=== PATIENT | female | born 1940 | race Caucasian/White ===

== ENCOUNTER 2017-12-18 13:31 | Day surgery (SDC) | payer MEDICARE, BC, SELFPAY ==
[2017-12-18 14:25] VITALS: BP 191/82; PULSE 57; RESP 16; TEMP 36; O2SAT 99
[2017-12-18] MEDS: SODIUM CHLORIDE 0.9% 1,000 ML 42 ML IV (14:41)
--- NOTE | 2017-12-18 14:51 | SUR.OPER ---
to endo from opd via cart respirations unlabored iv patnet positioned per self for procedure
--- NOTE | 2017-12-18 14:54 | PM.HP.1 ---
History of Present Illness Date Patient Seen: 12/18/17 Time Patient Seen: 14:54 Chief complaint: colonoscopy w/biopsy [id number] Narrative: Screening colonoscopy without Patient History Medical History GE reflux (Acute) Hypercholesterolemia (Acute) Hypertension (Acute) Hypothyroidism (Acute) Meds Home Medications Medication Instructions Recorded Confirmed Type THYROID (BIO-THROID) mg PO QDAY #0 07/03/12 History alprazolam [Xanax] mg PO HS #0 07/03/12 History hydrochlorothiazide 25 mg PO QDAY #0 07/03/12 History isosorbide mononitrate 40 mg PO QDAY #0 07/03/12 History metoprolol tartrate [Lopressor] mg PO QDAY #0 07/03/12 History nortriptyline [Pamelor] mg PO HS #0 07/03/12 History sertraline [Zoloft] 25 mg PO QDAY #0 07/03/12 History simvastatin [Zocor] mg PO HS #0 07/03/12 History trazodone mg PO HS #0 07/03/12 History Allergies Allergy/AdvReac Type Severity Reaction Status Date / Time No Known Drug Allergies Allergy Verified 12/18/17 14:22 Exam Vital Signs (past 8 hours): - 12/18/17 14:25 Temperature 96.8 F L Pulse Rate 57 L Respiratory Rate 16 Blood Pressure 191/82 H Pulse Oximetry 99 Oxygen Delivery Method Room Air Narrative Exam Narrative: Oropharynx free of lesions Chest clear to auscultation percussion Cardiac exam reveals no S3 or murmur Assessment & Plan Plan: Assessment/Plan Narrative: Need for 10 year screening colonoscopy
--- NOTE | 2017-12-18 15:15 | PM.OP.ENDO ---
Operative Date/Time/Diagnoses Date of procedure: 12/18/17 Time of procedure: 15:15 Pre-op diagnosis: See indication and findings Post-op diagnosis: same Procedure & Clinicians Study performed: Colonoscopy Same procedure as scheduled: Yes Indications: Ten year screening Surgeon: Aguilar Antonio Procedure Notes Procedure in detail: After informed consent was obtained the patient placed left lateral decubitus position. The video colonoscope was introduced the rectum slowly advanced to the cecum. Preparation was good. Cecum was identified as IC valve and appendiceal orifice. On slow withdrawal it goes was carefully examined. Scope was removed patient tolerated procedure well Blood loss none Complications none Sedation Fentanyl 50 mcg Versed 5 mg IV titration Total sedation time 23 min Findings 1. Significant sigmoid diverticulosis 2. Otherwise negative colonoscopy to cecum This will be Ms. guy men's last colonoscopy. Sedation minutes: 24
--- NOTE | 2017-12-18 15:16 | SUR.OPER ---
tolerated procedure well
[2017-12-18 15:17] VITALS: BP 177/80; PULSE 60; RESP 20; TEMP 36; O2SAT 99
[2017-12-18] MEDS: fentaNYL 250 MCG/5 ML INJ 50 MCG IV (15:18)
[2017-12-18] MEDS: MIDAZOLAM 5 MG/5 ML VIAL IV (15:18)
--- NOTE | 2017-12-18 15:18 | P.OP.ENDO_ITS ---
Operative Date/Time/Diagnoses Date of procedure: 12/18/17 Time of procedure: 15:15 Pre-op diagnosis: See indication and findings Post-op diagnosis: same Procedure & Clinicians Study performed: Colonoscopy Same procedure as scheduled: Yes Indications: Ten year screening Surgeon: Aguilar Antonio Procedure Notes Procedure in detail: After informed consent was obtained the patient placed left lateral decubitus position. The video colonoscope was introduced the rectum slowly advanced to the cecum. Preparation was good. Cecum was identified as IC valve and appendiceal orifice. On slow withdrawal it goes was carefully examined. Scope was removed patient tolerated procedure well Blood loss none Complications none Sedation Fentanyl 50 mcg Versed 5 mg IV titration Total sedation time 23 min Findings 1. Significant sigmoid diverticulosis 2. Otherwise negative colonoscopy to cecum This will be Ms. gyu men's last colonoscopy. Sedation minutes: 24
[2017-12-18 15:23] VITALS: BP 168/78; PULSE 59; RESP 13; O2SAT 100
[2017-12-18 15:28] VITALS: BP 174/82; PULSE 60; RESP 20; TEMP 36.1; O2SAT 98
[2017-12-18 16:10] VITALS: BP 196/75; PULSE 57; RESP 16; TEMP 36.3; O2SAT 100
== END 2017-12-18 16:10 | disposition home or self-care (01) ==
PROVIDERS: PCP Family Medicine; Visit Provider Internal Medicine Gastroenterology
PROC: 0DJD8ZZ Inspection of Lower Intestinal Tract, Via Natural or Artificial Opening Endoscopic (ICD-10-PCS; CPT 45378; principal; 2017-12-18 14:30)
DX: Z12.11 Encounter for screening for malignant neoplasm of colon (principal); K57.30 Diverticulosis of large intestine without perforation or abscess without bleeding; K21.9 Gastro-esophageal reflux disease without esophagitis; E78.00 Pure hypercholesterolemia, unspecified; I10 Essential (primary) hypertension; E03.9 Hypothyroidism, unspecified
CPT/HCPCS: G0105; J2250; J3010

== ENCOUNTER 2019-09-14 19:29 | Inpatient (IN) | payer MEDICARE, OTHER, SELFPAY ==
[2019-09-14 19:38] VITALS: BP 131/88; PULSE 114; RESP 15; TEMP 36.8; O2SAT 96; BMI 16.4
--- NOTE | 2019-09-14 20:12 | ED_ITS ---
HPI - Extremity Injury (Lower) General Chief Complaint: Extremity Injury, Lower Stated Complaint: L hip fracture Time Seen by Provider: 09/14/19 20:12 Source: EMS Mode of arrival: EMS History of Present Illness HPI Narrative: Patient presents after a ground level fall with left hip pain. She was seen initially at [facility] emergency department and diagnosed with a femoral neck fracture. As they do not currently have orthopedic coverage she is transfer to [facility] for admission and orthopedic intervention. Dr. Ashwini ojeda was aware of transfer prior to accepting. Medical history includes hypertension, hyperlipidemia, coronary artery disease, osteoporosis, reflux and patient will benefit from admission to the [facility] for medical management of medical issues prior to surgical intervention. [facility] sent a disc with imaging studies. Or currently unable to load studies from that disc into a radiology programs. Will see if they can be electronically pushed from [facility] not will need to re-image. Related Data Home Medications Medication Instructions Recorded Confirmed THYROID (BIO-THROID) mg PO QDAY #0 07/03/12 metoprolol tartrate [Lopressor] 50 mg PO BID #0 07/03/12 12/18/17 trazodone mg PO HS #0 07/03/12 chlorthalidone 0.5 mg/kg PO DAILY 12/18/17 12/18/17 clonazepam 0.25 mg PO BID 12/18/17 12/18/17 ibandronate 150 mg PO QMONTH 12/18/17 12/18/17 lisinopril 20 mg PO DAILY 12/18/17 12/18/17 omeprazole 20 mg PO DAILY 12/18/17 12/18/17 pravastatin 20 mg PO DAILY 12/18/17 12/18/17 trazodone 100 mg PO DAILY 12/18/17 12/18/17 Allergies Allergy/AdvReac Type Severity Reaction Status Date / Time No Known Drug Allergies Allergy Verified 09/14/19 19:38 Review of Systems Review of Systems Narrative: Denies ? fever ? cough ? cold ? chills ? chest pain ? dyspnea ? orthopnea ? wheezing ? abdominal pain ? change to bowel or bladder habits ? nausea vomiting ? skin changes ? rashes Patient History Medical History (Updated 09/14/19 @ 20:38 by Jessica Garcia MD) GE reflux (Acute) Hypercholesterolemia (Acute) Hypertension (Acute) Hypothyroidism (Acute) Surgical History (Updated 09/14/19 @ 20:16 by Jessica Garcia MD) History of appendectomy (Acute) History of hysterectomy (Acute) Social History (Updated 09/14/19 @ 20:22 by Jessica Garcia MD) details: 2 weeks ago, of a cardiac event at home household members: family and children other: She and her were traveling through [facility] 5 weeks ago Smoking Status: Never smoker alcohol intake: current Exam Narrative Exam Narrative: General: Healthy appearing, in no acute distress. Able to give a complete and mostly coherent history after multiple narcotic doses. HEENT: Dry mucous membranes, normal sclera with reactive pupils, Neck: No JVD, supple Respiratory: Lungs are clear to auscultation, no wheezing no rales no rhonchi. Full and symmetrical air movement Cardiac: Regular rate and rhythm no murmurs no bruits Abdomen: Soft nontender good bowel tones, no flank pain Skin: Warm and dry, no rashes Neurologic: Grossly neurologically intact with no obvious asymmetries or abnormalities Extremities: Left hip is tender position of comfort is slightly externally rotated with the knee at 45?, neurovascularly intact Psych: Cooperative, appropriate insight and affect Initial Vital Signs Initial Vital Signs: Vital Signs Temperature 98.2 F 09/14/19 19:38 Pulse Rate 114 H 09/14/19 19:38 Respiratory Rate 15 09/14/19 19:38 Blood Pressure 131/88 09/14/19 19:38 Pulse Oximetry 96 09/14/19 19:38 Course Orders Ordered: ED Orders 09/14/19 20:35 XR chest 1V Stat EKG-12 Lead Stat Hydromorphone HCl (Dilaudid) 0.25 mg IV Q2H PRN PRN Reason: Pain, Severe (7-10) Last Admin: 09/14/19 21:16 Dose: 0.25 mg Documented by: PEPPER Hydromorphone HCl (Dilaudid) 0.5 mg IV Q1HR PRN PRN Reason: pain Potassium Chloride 40 meq/ (Sodium Chloride) 520 mls @ 130 mls/hr IV NOW ONE Stop: 09/15/19 00:35 Last Admin: 09/14/19 20:45 Dose: 130 mls/hr Documented by: PEPPER Cosigned by: [email or web address] Sodium Chloride (Normal Saline 0.9%) 1,000 mls @ 150 mls/hr IV CONT SERGEY Last Admin: 09/14/19 21:17 Dose: 150 mls/hr Documented by: PEPPER Discontinued Medications Acetaminophen (Tylenol) 325 mg PO NOW ONE Stop: 09/14/19 20:36 Last Admin: 09/14/19 20:44 Dose: 325 mg Documented by: PEPPER Hydromorphone HCl (Dilaudid) 0.5 mg IV Q2H ONE Stop: 09/14/19 21:55 Last Admin: 09/14/19 22:09 Dose: 0.5 mg Documented by: ROHIT Sodium Chloride (Normal Saline 0.9%) 1,000 mls @ 1,000 mls/hr IV BOLUS ONE Stop: 09/14/19 22:07 Last Admin: 09/14/19 21:16 Dose: 1,000 mls/hr Documented by: PEPPER Oxycodone/Acetaminophen (Percocet 5/325) 1 tab PO NOW ONE Stop: 09/14/19 20:36 Last Admin: 09/14/19 20:44 Dose: 1 tab Documented by: PEPPER Potassium Chloride (Klor-Con M20) 40 meq PO NOW ONE Stop: 09/14/19 20:36 Last Admin: 09/14/19 20:44 Dose: 40 meq Documented by: PEPPER Vital Signs Vital signs: Vital Signs - 8 hr 09/14/19 19:38 Temperature 98.2 F Pulse Rate 114 H Respiratory Rate 15 Blood Pressure 131/88 Pulse Oximetry 96 MDM - Extremity Injury (Lower) Medical Records Attestation: I reviewed the patient's medical records. Lab Data Attestation: I reviewed the patient's lab results. Lab results narrative: Initial labs from [facility] indicate normal CBC sodium low at 123 protect with potassium low at 2.7 and chloride low at 82 [facility] H&H is 13/37.8 repeat 4 hours later is 12.1/35.7 Result diagrams: 09/14/19 21:25 Imaging Data Left hip imaging done, [facility]: Radiologist's Impression: Preliminary report available, images not yet available: Acute moderately angulated, mildly foreshortened, comminuted as well as displaced intratrochanteric left femoral fracture 2100 images were able to be imported into our [facility] PACS system Chest x-ray: Radiologist's Impression: IMPRESSION: Mild interstitial pulmonary edema. Question focal right upper lobe pneumonia. Dictated by: Mikey Gil M.D. on 09/14/2019 at 21:10 ECG Data Attestation: I personally reviewed and interpreted this ECG as follows: Interpretation: Sinus tachycardia at a rate of 113 Q-waves anteriorly suggesting old anterior infarction No acute ischemic changes Normal axis, normal intervals MDM Narrative Medical decision making narrative: Left trochanteric hip fracture. Will need surgical intervention; add Covid19 testing, EKG and chest x-ray preop. Sodium is low at 123 as is potassium 2.4. Will continue with maintenance fluid and potassium replacement. Dr. Mayes accepts admission to the hospitalist service Dr. Frias agrees to consultation. Surgery at the very earliest would be tomorrow evening and more likely on Saturday. She will coordinate with Dr. Mayes 2100 increasing pain. Feel Percocet for extended relief from 0.25 of IV Dilaudid for immediate relief. Repeat blood pressure is 94/53 and noted blood pressure prior to treatment of any pain was 193/97 at [facility]. She is also moderately tachycardic. Will repeat an H&H just make sure she is not bleeding and make sure that she has a type and screen preoperatively as well 2200 H&H is reassuring. Low blood pressure documented was not for this patient Discharge Plan Departure Patient Disposition: Admitted As Inpatient Clinical Impression: Acute hypokalemia, Acute hyponatremia Femoral neck fracture Qualifiers: Encounter type: initial encounter Fracture type: closed Laterality: left Qualified Code(s): S72.002A - Fracture of unspecified part of neck of left femur, initial encounter for closed fracture Discharge Date/Time: 09/14/19 22:10 Referrals: Bronson Cheatham MD [Primary Care Provider] - Admit Date/Time: 09/14/19 20:52 Admit Provider: Gosia Mayes
--- NOTE | 2019-09-14 20:35 | DI.RAD.S_ITS ---
PROCEDURE: XR CHEST 1V INDICATIONS: pre-op TECHNIQUE: One view of the chest was acquired. COMPARISON: [facility], , CHEST 2 VIEW, 08/08/2010, 10:07. FINDINGS: Surgical changes and devices: None. Lungs and pleura: Mild interstitial pulmonary edema. Question focal airspace consolidation in the right upper lobe. No pleural effusions or pneumothorax. Mediastinum: Mediastinal contours appear normal. Heart size is normal. Bones and chest wall: No suspicious bony lesions. Overlying soft tissues appear unremarkable. IMPRESSION: Mild interstitial pulmonary edema. Question focal right upper lobe pneumonia. Dictated by: Mikey Gil M.D. on 09/14/2019 at 21:10 Approved by: Mikey Gil M.D. on 09/14/2019 at 21:11
[2019-09-14] MEDS: ACETAMINOPHEN 325 MG TABLET PO (20:44)
[2019-09-14] MEDS: POTASSIUM CHLORIDE 20 MEQ TAB 40 MEQ PO (20:44)
[2019-09-14] MEDS: OXYCODONE/ACETAMINOPHEN 5/325 TABLET 1 TAB PO (20:44)
[2019-09-14] MEDS: POTASSIUM CHLORIDE 40 MEQ in SODIUM CHLORIDE 0.9% 500 ML 130 ML IV (20:45)
[2019-09-14] MEDS: HYDROMORPHONE 0.5 MG INJ 0.25 MG IV (21:16)
[2019-09-14] MEDS: SODIUM CHLORIDE 0.9% 1,000 ML 1000 ML IV (21:16)
[2019-09-14] MEDS: SODIUM CHLORIDE 0.9% 1,000 ML 150 ML IV (21:17)
--- NOTE | 2019-09-14 21:33 | PC.NURSE ---
pt c/o left hip pain. sent from [facility] for fx and surgical intervention. pt arrives pain uncontrolled. pt states she tripped on tripod at home causing her to fall. denies loc.
[2019-09-14 21:44] LABS: Hematocrit 35.7 % (36-46); Hemoglobin 12.1 g/dL (12.0-16.0)
--- NOTE | 2019-09-14 21:54 | PC.NURSE ---
Verbal order recieved for 0.5mg IV dilaudid for severe pain.
[2019-09-14 22:02] VITALS: BP 196/83; PULSE 60; RESP 24; O2SAT 92
[2019-09-14] MEDS: HYDROMORPHONE 0.5 MG INJ IV (22:09)
[2019-09-14 22:39] VITALS: BMI 17.6
[2019-09-14 22:49] VITALS: BP 164/83; PULSE 87; RESP 16; TEMP 36.9; O2SAT 100
--- NOTE | 2019-09-14 22:59 | P.HP_ITS ---
History of Present Illness History of Present Illness Date Patient Seen: 09/14/19 Chief complaint: L hip fracture Narrative: The patient is an 79-year-old female with a history of hypertension, hyperlipidemia, GERD, coronary artery disease, who reports she was standing at home looking through her tripod telescope when she stepped backwards to ovoid her dog and fell over 1 of the legs of the tripod. The patient landed on her left hip. She had immediate pain. She denies any lightheadedness dizziness or chest pain prior to her fall. Patient was taken to [facility]. She had an x-ray which showed an acute moderate angulated mildly foreshortened comminuted displaced intertrochanteric left femur fracture. As [facility] had no orthopedic coverage this evening she was transferred to [facility] for admission and surgical treatment. Patient History Medical History (Updated 09/14/19 @ 23:01 by Gosia Mayes MD) CAD (coronary artery disease) (Acute) GE reflux (Acute) Hypercholesterolemia (Acute) Hypertension (Acute) Hypothyroidism (Acute) Surgical History History of appendectomy (Acute) History of hysterectomy (Acute) Family & Social History Family History (Updated 09/14/19 @ 23:02 by Gosia Mayes MD) Mother Natural with unknown cause Father Natural with unknown cause Social History: household members family,children Prior Living Arrangements House other She and her were traveling through [facility] 5 weeks ago Safety & Behavioral: Feels Safe in Current Yes Environment Been Physically Hurt or No Threatened By a Person Suicidal Ideation Description None Suicide Plan Description No Plan Tobacco & Substance use: Smoking Status Never smoker alcohol intake current alcohol intake frequency 0-2 drinks per day Substance Use Type does not use Meds Home Medications and Allergies Home Medications Medication Instructions Recorded Confirmed Type THYROID (BIO-THROID) mg PO QDAY #0 07/03/12 History metoprolol tartrate [Lopressor] 50 mg PO BID #0 07/03/12 12/18/17 History trazodone mg PO HS #0 07/03/12 History chlorthalidone 0.5 mg/kg PO DAILY 12/18/17 12/18/17 History clonazepam 0.25 mg PO BID 12/18/17 12/18/17 History ibandronate 150 mg PO QMONTH 12/18/17 12/18/17 History lisinopril 20 mg PO DAILY 12/18/17 12/18/17 History omeprazole 20 mg PO DAILY 12/18/17 12/18/17 History pravastatin 20 mg PO DAILY 12/18/17 12/18/17 History trazodone 100 mg PO DAILY 12/18/17 12/18/17 History Allergies Allergy/AdvReac Type Severity Reaction Status Date / Time No Known Drug Allergies Allergy Verified 09/14/19 19:38 Review of Systems Review of Systems ROS: Yes All systems reviewed with the patient and are negative except as otherwise documented Exam Vital Signs (past 8 hours): - 09/14/19 19:38 09/14/19 22:02 09/14/19 22:49 Temperature 98.2 F 98.5 F Pulse Rate 114 H 60 87 Respiratory Rate 15 24 16 Blood Pressure 131/88 164/83 H Blood Pressure [Left Arm] 196/83 H Pulse Oximetry 96 92 100 Oxygen Delivery Method Room Air Narrative Exam Narrative: Pleasant elderly female uncomfortable with pain HEENT: Normocephalic atraumatic, extraocular muscles are intact, oropharynx reveals dry mucous membranes, neck is supple without adenopathy, no JVD noted Lungs: Clear to auscultation, no rhonchi crackles or wheezes Cardiac exam: Regular rate and rhythm, normal S1-S2, 2/6 systolic ejection murmur Abdomen: Soft nontender nondistended, no hepatosplenomegaly, well-healed midline incision noted, no rebound tenderness, no board-like rigidity, no palpable mass Extremities: Left extremity shortened and internally rotated, right lower extremity no edema Neuro exam: Patient is extremely hard hearing, she has bilateral hearing aids in place her cranial nerves are intact, she is able to move her upper extremities, she is in exquisite pain with movement of the left lower extremity, she is able to move the right lower extremity Skin exam no obvious lesion Psychiatric exam: The patient is alert awake oriented and appropriate, she has no active delusions or hallucinations. Objective Labs Result Diagrams: 09/14/19 21:25 Labs: Laboratory Results - last 24 hr 09/14/19 09/14/19 21:25 21:25 Hgb 12.1 Hct 35.7 L Blood Type B Positive Antibody Screen Negative Assessment & Plan Assessment & Plan narrative: Impression 1. 79-year-old female with a history of osteoporosis status post ground level fall here for a left moderately angulated comminuted displaced intertrochanteric femur fracture -x-ray report from would be confirms a femur fracture -patient with known osteoporosis -patient in significant pain at this time -will continue IV Dilaudid -orthopedic surgery consultation obtained, the patient to proceed to the OR once COVID-19 test is negative 2. Hyponatremia -serum sodium 123 on admission -will continue IV hydration -will repeat labs in the morning -will hold chlorthalidone while hospitalized -chlorthalidone likely etiology of hyponatremia 3. Hypokalemia -serum potassium 2.7 -potassium replacement in the emergency department and will continue -will check magnesium and repeat labs in the morning -suspect chlorthalidone leading to hypokalemia as well 4. Hypertension -will continue lisinopril 5. Hyperlipidemia -continue statin 6. GERD -will continue PPI 7. History of osteoporosis -patient will continue outpatient bisphosphonate per her primary care physician -resume multi vitamins as an outpatient 8. History of coronary artery disease -will continue metoprolol -EKG reveals sinus tachycardia with occasional PVCs, anteroseptal MD age indeterminate 9. DVT prophylaxis -will initiate b.i.d. aspirin 10. Anxiety posttraumatic stress disorder -will continue clonazepam Patient indicates she is a full code will note that her record accordingly The patient was evaluated during the COVID-19 [facility], and that diagnosis was considered upon initial presentation. The evaluation, treatment, and testing was consistent with current guidelines for patients who presents with complaints or symptoms at may be related to COVID-19
--- NOTE | 2019-09-14 23:20 | PC.NURSE ---
2315 -Pt sats decreased to 84% on RA with sleep. Placed on 2l. Sats increased to 100%. 2230 - Pt to room from ER. Transfer to bed via sliderboard. C/o 9 of 10 pain. Anxious. Encouraged slow breathing. Some difficulty answering questions r/t pain and difficulty concentration. Oriented to room and routine. Educated to safety. Call light in reach. Bed alarm on. Dr. Mayes at bedside to see pt.
[2019-09-14 23:25] VITALS: BP 149/66; PULSE 77; RESP 18; TEMP 36.9; O2SAT 100
[2019-09-15] VITALS (25 sets, daily range): BP systolic 113–151; BP diastolic 46–78; PULSE 63–79; RESP 10–21; TEMP 36.7–37.5; O2SAT 87–100; BMI 17.6
--- NOTE | 2019-09-15 | DI.RAD.S_ITS ---
PROCEDURE: XR HIP W PEL IF DONE LT 2V INDICATIONS: POST OPERATIVE ORIF LEFT HIP TECHNIQUE: AP pelvis with lateral view(s) of the left hip(s). COMPARISON: [facility], RG, XR HIP 2V LEFT, 09/14/2019, 16:07. [facility], CR, XR HIP W PEL IF DONE LT 2V, 09/15/2019, 18:36. FINDINGS: Bones: Open reduction and internal fixation of intertrochanteric left femoral neck fracture. 2 screws urs the femoral neck. There is a intramedullary gracie. The alignment is anatomic. Multiple left rib fracture. There is an old right inferior pubic humeral fracture. No suspicious bony lesions. Soft tissues: The visualized bowel gas pattern is normal. No suspicious soft tissue calcifications. IMPRESSION: ORIF of left hip fracture. Dictated by: Aleks Santo M.D. on 09/15/2019 at 19:54 Approved by: Aleks Santo M.D. on 09/15/2019 at 20:00
--- NOTE | 2019-09-15 | DI.RAD.S_ITS ---
PROCEDURE: XR HIP W PEL IF DONE LT 2V INDICATIONS: ORIF LEFT HIP TECHNIQUE: 4 views of the hip were acquired. COMPARISON: [facility], , XR HIP 2V LEFT, 09/14/2019, 16:07. FINDINGS: 4 intraoperative fluoroscopy images demonstrate ORIF of left femoral neck fracture and placement of compression screws and intramuscular gracie. IMPRESSION: ORIF of left femoral neck fracture. Dictated by: Aleks Santo M.D. on 09/15/2019 at 19:50 Approved by: Aleks Santo M.D. on 09/15/2019 at 19:52
[2019-09-15] MEDS: TRAZODONE 50 MG TABLET PO (00:20)
[2019-09-15] MEDS: KCL 40 MEQ IN NS 1,000 ML 100 MEQ IV (00:20)
[2019-09-15] MEDS: METOPROLOL IR 50 MG TABLET PO ×2 (00:20→08:03)
[2019-09-15] MEDS: ASPIRIN EC 81 MG TABLET PO ×2 (00:21→08:03)
[2019-09-15] MEDS: HYDROMORPHONE 1 MG INJ IV ×2 (00:45→06:23)
[2019-09-15] MEDS: HYDROMORPHONE 0.5 MG INJ IV (04:08)
[2019-09-15 04:55] LABS: Add Manual Diff / Slide Review NO; Basophils Absolute Auto 100 /uL (0-100); Basophils Percent Auto 0.5 % (0-2); Eosinophils Absolute Auto 400 /uL (0-450); Eosinophils Percent Auto 4.4 % (2-4); Hematocrit 28.7 % (36-46); Hemoglobin 9.9 g/dL (12.0-16.0); Lymphocytes Absolute Auto 1200 /uL (1100-4500); Lymphocytes Percent Auto 12.6 % (25-40); Mean Corpuscular HGB Conc 34.4 % (30-36); Mean Corpuscular Hemoglobin 32.3 PG (26-34); Mean Corpuscular Volume 93.8 fL (80-100); Monocytes Absolute Auto 700 /uL (0-900); Monocytes Percent Auto 6.9 % (3-14); Neutrophils Absolute Auto 7100 /uL (1500-7000); Neutrophils Percent Auto 75.6 % (50-75); Platelet Count 265 X10^3/uL (150-400); Red Blood Cell Count 3.07 X10^6/uL (4.0-5.2); Red Cell Distribution Width 12.1 % (11.6-14.8); White Blood Cell Count 9.4 X10^3/uL (4.5-11.0)
[2019-09-15 04:59] LABS: Magnesium 1.5 mg/dL (1.6-2.3)
[2019-09-15 05:12] LABS: BUN Creatinine Ratio 18.8 (6-22); Blood Urea Nitrogen 9 mg/dL (7-17); Calcium 7.7 mg/dL (8.4-10.2); Carbon Dioxide 28 mmol/L (22-32); Chloride 100 mmol/L (98-107); Estimated Glomerular Filt Rate > 60.0 mL/min (>60); Glucose 99 mg/dL (80-110); HEMOLYSIS < 15 (0-50); Sodium 129 mmol/L (137-145)
[2019-09-15 05:13] LABS: Potassium 5.1 mmol/L (3.4-5.1)
[2019-09-15] MEDS: PANTOPRAZOLE 20 MG TABLET PO (06:23)
--- NOTE | 2019-09-15 07:51 | P.CONS_ITS ---
History of Present Illness Consult details Date Patient Seen: 09/15/19 Time Patient Seen: 07:52 Chief complaint: L hip fracture Reason for consult: Hip fracture left Requesting provider: Jessica Garcia Narrative: 79-year-old female ground level fall left intertrochanteric hip fracture. [facility] coverage apparently so transferred patient [facility] for care. Patient reportedly was in [place] about 5 weeks ago. Unfortunately lost about 2 weeks ago. Thinks she has been having hip pain for at least about a month but was unable to ambulate presented on the stretcher to the hospital yesterday. No history of orthopedic surgeries. History osteoporosis. Denies any other injuries. Pain controlled when lies still exacerbated by movement. Pain medication helps. States has family members in [place]. Denies fevers chills nausea vomiting. Meds Home Medications and Allergies Home Medications Medication Instructions Recorded Confirmed Type THYROID (BIO-THROID) mg PO QDAY #0 07/03/12 History metoprolol tartrate [Lopressor] 50 mg PO BID #0 07/03/12 12/18/17 History trazodone mg PO HS #0 07/03/12 History chlorthalidone 0.5 mg/kg PO DAILY 12/18/17 12/18/17 History clonazepam 0.25 mg PO BID 12/18/17 12/18/17 History ibandronate 150 mg PO QMONTH 12/18/17 12/18/17 History lisinopril 20 mg PO DAILY 12/18/17 12/18/17 History omeprazole 20 mg PO DAILY 12/18/17 12/18/17 History pravastatin 20 mg PO DAILY 12/18/17 12/18/17 History trazodone 100 mg PO DAILY 12/18/17 12/18/17 History Allergies Allergy/AdvReac Type Severity Reaction Status Date / Time No Known Drug Allergies Allergy Verified 09/14/19 19:38 Review of Systems Review of Systems ROS: Yes All systems reviewed with the patient and are negative except as otherwise documented Exam Vital Signs (past 8 hours): - 09/15/19 04:25 Temperature 98.2 F Pulse Rate 72 Respiratory Rate 20 Blood Pressure 142/65 H Pulse Oximetry 100 Oxygen Delivery Method Nasal Cannula Oxygen Flow Rate 1 Narrative Exam Narrative: Alert oriented female in no acute distress. HEENT exam normocephalic atraumatic Respiratory exam lungs clear to auscultation bilaterally CV exam regular rate and rhythm Musculoskeletal exam moving bilateral upper extremities and right lower extremity without pain no tenderness or deformity. Left lower extremity shows deformity with shortening and external rotation consistent with hip fracture pathology. Stable to demonstrate ankle d orsiflexion plantar flexion wiggles toes. Calf is soft. Thigh is soft. Brisk capillary refill. Objective Labs Result Diagrams: 09/15/19 04:35 09/15/19 04:35 Labs: Laboratory Results - last 24 hr 09/14/19 09/14/19 09/14/19 21:25 21:25 22:30 WBC RBC Hgb 12.1 Hct 35.7 L MCV MCH MCHC RDW Plt Count Neut % (Auto) Lymph % (Auto) [place] % (Auto) Eos % (Auto) Baso % (Auto) Neut # (Auto) Lymph # (Auto) [place] # (Auto) Eos # (Auto) Baso # (Auto) Sodium Potassium Chloride Carbon Dioxide BUN Creatinine Estimated GFR BUN/Creatinine Ratio Glucose Calcium Magnesium Nasal Screen MRSA (PCR) Negative for mrsa Blood Type B Positive Antibody Screen Negative 09/15/19 09/15/19 09/15/19 04:35 04:35 04:35 WBC 9.4 RBC 3.07 L Hgb 9.9 L Hct 28.7 L MCV 93.8 MCH 32.3 MCHC 34.4 RDW 12.1 Plt Count 265 Neut % (Auto) 75.6 H Lymph % (Auto) 12.6 L [place] % (Auto) 6.9 Eos % (Auto) 4.4 H Baso % (Auto) 0.5 Neut # (Auto) 7100 H Lymph # (Auto) 1200 [place] # (Auto) 700 Eos # (Auto) 400 Baso # (Auto) 100 Sodium 129 L Potassium 5.1 Chloride 100 Carbon Dioxide 28 BUN 9 Creatinine 0.48 L Estimated GFR > 60.0 BUN/Creatinine Ratio 18.8 Glucose 99 Calcium 7.7 L Magnesium 1.5 L Nasal Screen MRSA (PCR) Blood Type Antibody Screen Assessment & Plan Assessment and plan (1) Hip fracture due to osteoporosis: Problem details: Left hip fracture osteoporosis. Surgical fixation for intertrochanteric fracture. Discussed calcium vitamin-D outpatient management with DEXA scan possible bisphosphonate or other treatment as indicated with primary care. Current visit: Yes Status: Acute (2) Intertrochanteric fracture of left hip: Problem details: Comminuted intertrochanteric hip fracture. Discussed to restore alignment and promote mobility decrease morbidity mortality surgical indication is indicated. Patient understands and agrees. Will plan for intramedullary nailing intertrochanteric femur fracture when the OR is available. Try to do this around 5- 5:30 p.m. tonight if medically optimized and covid-19 testing is back. Will need to be NPO 8 hours prior. If unable to do surgery tonight will do surgery Saturday. Discussed risks for possible blood transfusion after surgery will depend on intraoperative blood loss and perioperative course. The risks and benefits of the procedure have been discussed with the patient even opportunity to ask questions. The risks of surgery include but are not limited to infection, malunion, nonunion, persistence of pain, damage to nerves and blood vessels, posttraumatic arthritis, DVT, PE, cardiopulmonary complications and . The patient expressed a thorough understanding of the risks and benefits of surgery and has elected to proceed. Consent was signed today. Current visit: Yes Status: Acute
[2019-09-15] MEDS: DOCUSATE 100 MG CAPSULE PO (08:03)
[2019-09-15] MEDS: clonazePAM 0.5 MG TABLET PO (08:03)
[2019-09-15] MEDS: lisinopriL 20 MG TABLET PO (08:03)
[2019-09-15] MEDS: LEVOTHYROXINE 75 MCG TABLET PO (08:05)
--- NOTE | 2019-09-15 08:19 | PM.PN.1 ---
Subjective Subjective Date Patient Seen: 09/15/19 Interval history: Sophia Mathis is an 79-year-old female with a past medical history significant for CAD, hypertension, hyperlipidemia, hypothyroidism, anxiety, chronic back pain with opiate dependence, insomnia and osteoporosis who presented to [facility] ED after ground level fall with left femur fracture and was subsequently transferred to [facility] for orthopedic surgical repair as Orthopedic surgery was unavailable at [facility]. The patient is resting in bed comfortably. She reports significant pain with movement and intermittent muscle spasms. The patient is mildly confused likely due to narcotic administration in setting of mild cognitive impairment versus dementia. The patient has no other complaints and denies headache, cough, shortness of breath, chest pain, abdominal pain, nausea, vomiting, fever, chills, dysuria, diarrhea or constipation. Per nursing staff, the patient's son reported that at baseline his mother has short-term memory deficit which is likely dementia that has not been formally diagnosed and she is often repetitive. Her son is now her primary caregiver. The patient is voiding via Mcmillan catheter. She is NPO for possible surgery later this afternoon. Exam Vital Signs (past 8 hours): - 09/15/19 04:25 Temperature 98.2 F Pulse Rate 72 Respiratory Rate 20 Blood Pressure 142/65 H Pulse Oximetry 100 Oxygen Delivery Method Nasal Cannula Oxygen Flow Rate 1 Narrative Exam Narrative: General: Elderly cachectic and frail-appearing female sitting in bed, in no acute distress, mild confusion but otherwise appropriately interactive. HEENT: Normocephalic, atraumatic. External ears without defect. Pupils equal, round, and reactive to light. Anicteric sclerae, moist conjunctivae, and no lid lag. Oropharynx free of erythema and cobble stoning with moist mucosa. Bitemporal and full body muscle wasting Neck: Supple with full range of motion. No jugular venous distension. No lymphadenopathy or thyromegaly. Cardiovascular: Regular rate and rhythm without murmurs, rubs, or gallops appreciated Pulmonary: Clear to auscultation bilaterally without crackles, wheezes, or rhonchi. Normal respiratory effort with no use of accessory muscles. Abdomen: Soft, scaphoid, non-tender, non-distended. No hepatosplenomegaly or masses appreciated. Extremities: No clubbing, cyanosis, or edema. Left leg is shortened and externally rotated with intact distal pulses. Skin: Normal temperature, turgor, and texture; no rash, ulcers, or subcutaneous nodules appreciated. Neurological: Cranial nerves grossly intact. Psychiatric: Normal mood and affect. Alert and oriented to person, place and time. Mild confusion with repetitive statements. Objective Labs Result Diagrams: 09/15/19 04:35 09/15/19 04:35 Labs: Laboratory Results - last 24 hr 09/14/19 09/14/19 09/14/19 21:25 21:25 22:30 WBC RBC Hgb 12.1 Hct 35.7 L MCV MCH MCHC RDW Plt Count Neut % (Auto) Lymph % (Auto) [place] % (Auto) Eos % (Auto) Baso % (Auto) Neut # (Auto) Lymph # (Auto) [place] # (Auto) Eos # (Auto) Baso # (Auto) Sodium Potassium Chloride Carbon Dioxide BUN Creatinine Estimated GFR BUN/Creatinine Ratio Glucose Calcium Magnesium Nasal Screen MRSA (PCR) Negative for mrsa Blood Type B Positive Antibody Screen Negative 09/15/19 09/15/19 09/15/19 04:35 04:35 04:35 WBC 9.4 RBC 3.07 L Hgb 9.9 L Hct 28.7 L MCV 93.8 MCH 32.3 MCHC 34.4 RDW 12.1 Plt Count 265 Neut % (Auto) 75.6 H Lymph % (Auto) 12.6 L [place] % (Auto) 6.9 Eos % (Auto) 4.4 H Baso % (Auto) 0.5 Neut # (Auto) 7100 H Lymph # (Auto) 1200 [place] # (Auto) 700 Eos # (Auto) 400 Baso # (Auto) 100 Sodium 129 L Potassium 5.1 Chloride 100 Carbon Dioxide 28 BUN 9 Creatinine 0.48 L Estimated GFR > 60.0 BUN/Creatinine Ratio 18.8 Glucose 99 Calcium 7.7 L Magnesium 1.5 L Nasal Screen MRSA (PCR) Blood Type Antibody Screen Assessment & Plan Assessment & Plan narrative: Sophia Mathis is an 79-year-old female with a past medical history significant for CAD, hypertension, hyperlipidemia, hypothyroidism, anxiety, chronic back pain with opiate dependence, insomnia and osteoporosis who presented to [facility] ED after ground level fall with left femur fracture and was subsequently transferred to [facility] for orthopedic surgical repair as Orthopedic surgery was unavailable at [facility]. 1. Acute pathological left angulated comminuted displaced intertrochanteric femur fracture, present on admission. Active. -Patient presented after ground level fall with left lower extremity pain and inability to ambulate. -Left femur x-ray from [facility] demonstrated moderate angulated, mildly foreshortened, comminuted and displaced intertrochanteric left femoral fracture. -Patient is being ruled out for COVID-19, pending. -Consulted orthopedic surgery, Dr. Lea, who will plan to take patient to OR possibly later today for intramedullary nailing of intertrochanteric femur fracture if COVID 19 ruled out. Patient is NPO. -Continue pain control with acetaminophen 650 mg every 6 hours as needed for mild pain, cyclobenzaprine 5 mg every 8 hours as needed for muscle spasms and morphine 1-2 mg every 4 hours as needed for severe pain. -Patient has known osteoporosis. Continue calcium and vitamin-D supplementation. Continue outpatient treatment for osteoporosis per PCP. 2. Hyponatremia, acuity unknown but likely chronic, present on admission. Active. -Likely secondary to thiazide diuretic and dehydration. -Initial sodium level 123. -Continue normal saline at 100 mL/hr until adequately hydrated. -Continue to monitor sodium level closely and replete as necessary. 3. Hypokalemia, acuity unknown, present on admission. Resolved. -Likely secondary to chlorthalidone. -Initial potassium level 2.7. Received potassium chloride 40 mEq PO x1 and 40 mEq IV x1. Potassium level now 5.1. -Continue to monitor potassium level closely and replete as necessary. 4. Hypomagnesemia, acuity unknown, present on admission. Active. -Initial magnesium level 1.5. Received magnesium sulfate 2 g IV x1. -continue to monitor magnesium level closely and replete as necessary. 5. Hypertension, chronic, present on admission. Stable. -Continue amlodipine 2.5 mg daily and metoprolol tartrate 50 mg twice daily. Hold lisinopril to avoid intraoperative hypotension. Held chlorthalidone due to electrolyte derangement. 6. CAD and hyperlipidemia, chronic, present on admission. Stable. -EKG demonstrated sinus tachycardia with occasional PVCs and anteroseptal MA age indeterminate. -Continue aspirin 81 mg twice daily, metoprolol tartrate 50 mg twice daily and pravastatin 20 mg daily. 7. Hypothyroidism, chronic, present on admission. Stable. -TSH 6.39 and free T4 1.47 possibly indicative of subclinical hypothyroidism. Recommend repeat thyroid function testing in 4-6 weeks. -Continue levothyroxine 75 mcg daily. 8. Anxiety, chronic, present on admission. Stable. -Continue home clonazepam 0.25 mg daily at bedtime. 9. Insomnia, chronic, present on admission. Stable. -Continue clonazepam 0.25 mg daily at bedtime and nortriptyline 25 mg daily at bedtime. 10. History of recent aspergillosis pneumonia. -Patient is followed by pulmonology and completed course of treatment for aspergillosis pneumonia. Of note, patient has had aspergillosis pneumonia x2. -Chest x-ray demonstrated mild interstitial pulmonary edema and questionable focal right upper lobe pneumonia. Patient does not have pneumonia by clinical exam or laboratory evaluation. 11. Probable chronic severe protein calorie malnutrition, present on admission. Presumed stable. -BMI 17.7. -Patient appears cachectic with full body muscle wasting. -Consulted dietitian, pending. Code status: Full code DVT prophylaxis: Aspirin Disposition: Patient remains hospitalized pending surgical repair of left intertrochanteric femur fracture and will likely need [facility] facility at time of discharge for continued rehabilitation.
[2019-09-15] MEDS: MAGNESIUM SULFATE 2 GM/50 ML PIGGYBACK IV (08:50)
[2019-09-15] MEDS: SODIUM CHLORIDE 0.9% 1,000 ML 100 ML IV ×2 (08:50→20:57)
[2019-09-15 09:27] LABS: TSH w/ Reflex to FT4 6.39 uIU/mL (0.47-4.68)
[2019-09-15 09:56] LABS: Free T4, Direct Thyroxine 1.47 ng/dL (0.78-2.19)
--- NOTE | 2019-09-15 10:54 | OT.IPNOTE ---
Pt looking to have surgery this afternoon, therefore HOLD OT eval until tomorrow.
--- NOTE | 2019-09-15 10:59 | DIET.PN ---
Dietary Progress Note Assessment: Ms. Hinkle is an 79-year-old female with a past medical history significant for CAD, hypertension, hyperlipidemia, hypothyroidism, anxiety, chronic back pain with opiate dependence, insomnia and osteoporosis who presented to [facility] ED after a ground level fall with left femur fracture and was transferred to [facility] for orthopedic surgical repair. She reports no decrease in PO's, but has had weight loss. She is currently NPO for possible surgery this afternoon. HT: 152.4cm WT: 41kg UBW: na BMI: 17.6 Labs: Hct: 28.7 Hgb: 9.9 Na: 129 Cr: 0.48 Ca: 7.7 M.5 MNA: 8 Didier: 14 Nutrition Diagnosis: Inadequate energy intake r/t increased nutrient needs aeb failure to maintain appropriate weight, hip fracture increasing nutrient needs. 2. Underweight r/t inadequate energy intake aeb BMI < 18.5, estimated intake < EER Interventions: 1. Educate on energy/protein needs and food sources. 2. ONS enlive BID as diet progresses. Diet Order: NPO EER: 1250 kcal @ 30cal/kg; 53-60g pro @ 1.3-1.5g/kg PCM/fracture Monitoring/Evaluations: weight, PO's, diet progression/tolerance
--- NOTE | 2019-09-15 11:27 | PT-IP ANOTE ---
Pt is awaiting surgery for her Left trochanteric hip fracture and is pending Covid 19 testing. PT to hold evaluation until after surgery tomorrow.
[2019-09-15] MEDS: MORPHINE 2 MG/ML INJ IV ×3 (11:29→20:51)
[2019-09-15] MEDS: CYCLOBENZAPRINE 5 MG TABLET PO (11:29)
[2019-09-15] MEDS: ONDANSETRON 4 MG/2 ML INJ IV (13:34)
--- NOTE | 2019-09-15 13:42 | CM.DANOTE ---
DCP/Assessment: Reviewed chart. Patient is a 79yr old female admitted to [facility] after fall at home. Patient awaiting surgery for left hip fx. Currently patient is being tested for COVID 19. P[address] Greene. Primary payor is 1)Medicare 2)[facility] [place]. Reviewed chart. Provider reports that once COVID testing comes back, surgery expected to repair left hip fx. Due to precautions placed call to patient's emergency contact/son Tommy ph# [phone]. He reports that patient's spouse his father recently . Son here from [place] preparing to take patient to his residence until more permanent arrangements could be made. Unfortunately, patient tripped over her dog at her residence and fractured left hip. Placed call to son/oTmmy to start to discuss d/c planning. Son reports that he would like patient to go to [facility] on [place]. Son would like patient in or nearby [place]. Call placed to [facility] and general information faxed for review. Facility requesting (2) COVID 19 negative tests for admit. Provider/Dr. Rutherford notified. P: Pending. Awaiting surgery for left hip fx. COVID test results pending. SRI Coleman Discharge Planning/Care Management CM Discharge Assessment Start: 09/15/19 13:13 Freq: Status: Active Protocol: Document 09/15/19 13:13 KJS (Rec: 09/15/19 13:42 KJS [id number]) Discharge Planning Assessment Assigned General Accountant SRI Coleman Contact Information Tommy Hinkle (son) [phone] Advance Directives? Yes History Provided By Patient Prior Living Arrangements House Household Members family,children Type of transporation used prior to Relies on Others admit Independent with ADL's Yes Is patient alert and oriented? Under precautions for COVID 19 Caregiver for Another No Barriers to Discharge No Discharge Plan Long-Term Facility Referrals Initiated Long-Term If patient plan is SNF: Has PASSR been No completed? SNF/HH Preference Family first choice is 1) [facility] in [place]. Contact Name/Phone Pierre Has Agency SNF been contacted Yes Comment Information has been faxed to [phone] Review Status In Process Next Review Type Continued Stay Review
--- NOTE | 2019-09-15 17:27 | SUR.HOLD ---
Patient transferred from the floor. Patient reported having left lower chest pain but then stated it was related to her left hip pain that is radiating.VS stable.
[2019-09-15] MEDS: LACTATED RINGERS 1,000 ML 42 ML IV (17:30)
[2019-09-15] MEDS: CEFAZOLIN 2 GM/100 ML FROZ.PIGGY IV (17:55)
--- NOTE | 2019-09-15 18:33 | SUR.OPER ---
Supine on padded [place] table with bilateral legs secured in padded positioning boots and suspended in positioning spars, operative leg in traction per surgeon. Head on one pillow. Arm on non-operative side secured on padded armboard <90 degrees abduction. Arm on operative side padded and resting across chest then secured with tape over sheet. Padded perineal post in place per surgeon.
[2019-09-15] MEDS: BUPIVACAINE 0.25% W/ EPI 30 ML VIAL INJ (19:13)
[2019-09-15] MEDS: fentaNYL 100 MCG/2 ML INJ IV ×2 (19:38→19:52)
--- NOTE | 2019-09-15 19:42 | PM.OP.1 ---
Operative Date/Time/Diagnoses Date of procedure: 09/15/19 Time of procedure: 16:32 Pre-op diagnosis: Left displaced intertrochanteric femur fracture Osteopenia Procedure & Clinicians Procedure: Cephalomedullary nail left intertrochanteric hip fracture CPT code 37095 Same procedure as scheduled: Yes Indications: The patient is a 79-year-old female with a history of osteopenia that had a ground level fall onto her left side. Patient lives independently. She recently lost her about 2 and half weeks ago. She immediately had pain and deformity and was unable to ambulate. She was initially brought to [facility] but they did not have orthopedic coverage and was transferred [facility] for care. She was admitted to Internal Medicine team due to her medical comorbidities. She was found have acute blood loss anemia. She was indicated for surgery for displaced hip fracture for pain control and early mobilization and to decrease the morbidity mortality of the injury. She was optimized for surgery by the Internal Medicine team. The risks benefits and alternatives to the procedure were discussed with the patient length and with her son Jose. They expressed understanding. These risks included but were not limited to infection, bleeding, damage to nerves, pain, malunion, nonunion, blood clots, pulmonary embolism, cardiovascular risks associated with general anesthesia, including stroke pulmonary embolism and . Consent was signed. The patient underwent COVID-19 testing. She was not symptomatic on admission. Surgeon: Zelda Lea Click Yes if Unassisted: Yes Anesthesia Type: General Operative Notes Findings: Displaced left intertrochanteric femur fracture in varus position. Reduction was obtained on the traction table. Radiographs two views were verified and the fracture was stabilized with an 11.5 x 18 cm cephalomedullary nail from the [employer] InterTAN set Closure Type: primary Specimen(s): none sent Prosthetic devices, grafts, tissues, transplants, or devices: [employer]hew intertan nail short 11.5 x 18 cm. Ninety-five mm lag screw 90 mm integrated compression screw. 37.5 x 5 mm distal interlocking screw. Estimated Blood Loss (mL): 100 Blood products transfused: none Tourniquet time (min): 0 Procedure in detail: Patient was seen in the site of surgery was marked in the preoperative area. This was the left hip. The patient was then brought to the operating room and placed on the operative table by the anesthesia team. General anesthesia was administered. The appropriate 21 minutes was waited according to the COVID-19 protocol. The patient was then positioned on the fracture table in the standard fashion with well-padded boots and a padded peroneal post. An SCD was placed on the contralateral lower extremity. A Mcmillan catheter was in place. Formal time-out was called to confirm the patient's side and site of surgery and administration of preoperative antibiotics. All personnel agreed. The operative leg was then gently manipulated under fluoroscopic guidance to obtain a closed reduction and near anatomic alignment. At this point the operative extremity was prepped and draped in the standard sterile manner. A guidewire was placed percutaneously and the starting point obtained. Incision was made over the guidewire. An opening drill was inserted to the level of the lesser trochanter. The opening Reamer and guidewire were removed. An 18 cm cephalomedullary nail was selected. The 11.5 x 18 cm nail was then slid into the canal and the nail was then advanced to the proper depth and rotation. The guide for the cephalomedullary screws was inserted. An incision was made for this and the guide was placed to the bone. Guidewire was placed to the proper depth and confirmed on the AP and lateral imaging. The tip ache apex distance was evaluated appropriate. Next the outer cortex was drilled for the interlocking screw in the anti rotation bar was placed. The cephalomedullary screw length was then measured off the drill. A 95 mm lag screw was selected and the corresponding interlocking compression screw. The guidewire was overdrilled and a lag screw placed. Anti rotation bar was removed and then our locking compression screw screws were placed and confirmed on biplanar fluoroscopy. The integrated compression screw was tightened. Attention was the turned the compression screw proximally was tightened. Attention was turned to the distal interlock. This was placed the guide in the standard technique in the static position. Fluoro in AP lateral images were captured in the OR confirming alignment hardware placement. The distal interlock was a 37.5 x5 mm screw. Wounds were irrigated and closed in layers with 0 Vicryl deep fascial, 2 0 in the subcutaneous tissue and kitty in the skin. 0.25% Marcaine with epinephrine was injected at the incision sites for local anesthetic. Sterile dressings were applied. There no immediate complications. Surgical counts were correct. The patient tolerated the procedure well was taken recovery room. Complications: none Post-operative Condition: stable Disposition: PACU Plan for aftercare: Weightbearing as tolerated left lower extremity. Work with physical therapy and occupational therapy. X-rays were obtained in the PACU. A discharge by primary team. Likely care home. Monitor hemoglobin hematocrit postoperatively may require transfusion of symptomatic. Encourage incentive spirometry. SCDs and Lovenox for DVT T prophylaxis. Recommend Lovenox x4 weeks 40 mg subcutaneous daily for hip fracture. Follow-up [facility] with Dr. Lea in 2 weeks for wound check and repeat x-rays. Keep dressings clean dry and intact if saturated may change. If at [facility] and follow-up not easily completed then 10-14 days after surgery patient may have kitty removed at the center and x-rays that can be sent for review she [facility] by the surgeon.
[2019-09-15 19:46] LABS: COVID19 Sendout Not Detected (Not Detect)
--- NOTE | 2019-09-15 20:00 | SUR.PHASEI ---
Patient resting calmly. Sats 100% 2L NC.
--- NOTE | 2019-09-15 20:10 | SUR.PHASEI ---
Report called to [facility]
--- NOTE | 2019-09-15 20:31 | SUR.PHASEI ---
Patient transferred to the floor. Report to CC. VS stable. Lt hip dressing clean, dry, intact. IV saline locked x2. Patient moving BLE independently.
[2019-09-15 21:12] LABS: Alanine Aminotransferase 17 IU/L (<35); Albumin 3.3 g/dL (3.5-5.0); Albumin Globulin Ratio 1.2 (1.0-2.8); Alkaline Phosphatase 72 U/L (38-126); Aspartate Aminotransferase 34 IU/L (14-36); BUN Creatinine Ratio 16.3 (6-22); Bilirubin Total 0.3 mg/dL (0.2-1.3); Blood Urea Nitrogen 7 mg/dL (7-17); Calcium 7.7 mg/dL (8.4-10.2); Carbon Dioxide 24 mmol/L (22-32); Chloride 99 mmol/L (98-107); Estimated Glomerular Filt Rate > 60.0 mL/min (>60); Globulin 2.8 g/dL (1.7-4.1); Glucose 112 mg/dL (80-110); HEMOLYSIS < 15 (0-50); Potassium 3.6 mmol/L (3.4-5.1); Sodium 131 mmol/L (137-145); Total Protein 6.1 g/dL (6.3-8.2)
--- NOTE | 2019-09-15 21:48 | PC.NURSE ---
20:23 pt arrived from PACU per bed, awake and alert, VSS, left hip dressing dry and intact, no drain present. Mcmillan cath to st drainage, Monitor shows NSR rate 65. Resp deep and even O2 Sat 96% on room air. IV NS 100ml/hr initiated per order. C/O pain 10/10 to left hip area. Ice pack placed to L Hip and medicated with 2mg MS @ 20:51.
[2019-09-15] MEDS: clonazePAM 0.5 MG TABLET 0.25 MG PO ×2 (22:16→22:42)
[2019-09-15] MEDS: NORTRIPTYLINE HCL 25 MG CAPSULE PO ×2 (22:20→22:43)
[2019-09-16] VITALS (10 sets, daily range): BP systolic 98–176; BP diastolic 43–78; PULSE 68–87; RESP 14–18; TEMP 36.7–37.3; O2SAT 92–100
[2019-09-16] MEDS: OXYCODONE IR 5 MG TABLET PO ×4 (00:15→23:45)
[2019-09-16] MEDS: CEFAZOLIN 2 GM/100 ML FROZ.PIGGY IV ×2 (02:17→09:47)
[2019-09-16] MEDS: ONDANSETRON 4 MG/2 ML INJ IV (03:54)
[2019-09-16 05:12] LABS: Hematocrit 21.9 % (36-46); Hemoglobin 7.5 g/dL (12.0-16.0); Mean Corpuscular HGB Conc 34.2 % (30-36); Mean Corpuscular Hemoglobin 32.2 PG (26-34); Mean Corpuscular Volume 94.2 fL (80-100); Platelet Count 198 X10^3/uL (150-400); Red Blood Cell Count 2.32 X10^6/uL (4.0-5.2); Red Cell Distribution Width 11.9 % (11.6-14.8)
--- NOTE | 2019-09-16 06:27 | PC.NURSE ---
0345 Pt c/o L hip pain 02/10. Medicated per EMAR with oxycodone. Pt had bile emesis of 25 cc. Zofran given Per EMAR. Pt repositioned. 0500 Pt sleeping. Resp even and unlabored. 0600 Pt repositioned and states no pain and no nausea at this time.
--- NOTE | 2019-09-16 07:02 | P.PN_ITS ---
Subjective Subjective Date Patient Seen: 09/16/19 Time Patient Seen: 07:02 Interval history: Postop day 1 intramedullary nail left intertrochanteric hip fracture Lying comfortably in bed no complaints. Pain controlled Exam Vital Signs (past 8 hours): - 09/15/19 23:40 09/16/19 05:16 09/16/19 05:30 Temperature 99.3 F 98.1 F Pulse Rate 72 73 75 Respiratory Rate 20 16 16 Blood Pressure 135/60 176/78 H 118/54 L Pulse Oximetry 100 100 100 Oxygen Delivery Method Nasal Cannula Oxygen Flow Rate 2 Narrative Exam Narrative: General exam alert oriented female no acute distress lying in bed. HEENT exam normocephalic atraumatic Vital signs stable Respiratory exam unlabored on room air Musculoskeletal exam Left lower extremity with dressing in place clean. Thigh is soft. Calf is soft. Demonstrates active dorsiflexion plantar flexion. Brisk capillary refill SCDs in place Objective Labs Result Diagrams: 09/16/19 04:40 09/15/19 20:50 Labs: Laboratory Results - last 24 hr 09/14/19 09/15/19 09/15/19 21:05 04:35 20:50 WBC RBC Hgb Hct MCV MCH MCHC RDW Plt Count Sodium 131 L Potassium 3.6 D Chloride 99 Carbon Dioxide 24 BUN 7 Creatinine 0.43 L Estimated GFR > 60.0 BUN/Creatinine Ratio 16.3 Glucose 112 H Calcium 7.7 L Magnesium 2.0 Total Bilirubin 0.3 AST 34 ALT 17 Alkaline Phosphatase 72 Total Protein 6.1 L Albumin 3.3 L Globulin 2.8 Albumin/Globulin Ratio 1.2 TSH 6.39 H Free T4 1.47 COVID-19 PCR Not detected 09/16/19 04:40 WBC 11.0 RBC 2.32 L Hgb 7.5 L Hct 21.9 L MCV 94.2 MCH 32.2 MCHC 34.2 RDW 11.9 Plt Count 198 Sodium Potassium Chloride Carbon Dioxide BUN Creatinine Estimated GFR BUN/Creatinine Ratio Glucose Calcium Magnesium Total Bilirubin AST ALT Alkaline Phosphatase Total Protein Albumin Globulin Albumin/Globulin Ratio TSH Free T4 COVID-19 PCR Assessment & Plan Post-op Assessment and plan (1) Acute postoperative anemia due to expected blood loss: Assessment and Plan narrative: Postoperative blood loss anemia. Hemoglobin 7.5. Vital signs stable. If symptomatic or drops below 7 May require transfusion. Transfusion decision per primary team. (2) Intertrochanteric fracture of left hip: Assessment and Plan narrative: Postop day 1 cephalomedullary nail left intertrochanteric hip fracture. Weightbear as tolerated. SCDs Recommend Lovenox 4 weeks for DVT prophylaxis-may need to hold temporarily for anemia Postoperative Procedures: Procedures Operation Date: 09/15/19 17:00 Actual Procedures Side Surgeon p Intramedullary Nailing left intertrochanteric fracture Left Zelda Lea MD Postoperative day: 1 Postoperative status: doing well Postoperative status narrative: Stable. Expected postoperative acute blood loss anemia Postoperative plan: routine post-op care Postoperative plan narrative: Weightbear as tolerated. Work with PT OT. Expected assisted discharge when stable. Time Spent With Patient Time with patient: less than 15 minutes Quality VTE Deep Vein Thrombosis/Pulmonary Embolism Present on Admission: No
--- NOTE | 2019-09-16 07:58 | P.PN_ITS ---
Subjective Subjective Date Patient Seen: 09/16/19 Interval history: Sophia Mathis is an 79-year-old female with a past medical history significant for CAD, hypertension, hyperlipidemia, hypothyroidism, anxiety, chronic back pain with opiate dependence, insomnia and osteoporosis who pr esented to [facility] ED after ground level fall with left femur fracture and was subsequently transferred to [facility] for orthopedic surgical repair as Orthopedic surgery was unavailable at [facility]. The patient is resting in bed comfortably. She has very mild pain of left hip which she rates a +1/10 in severity and is control with pain medication. The patient undoubtedly has [id number] dementia that has been suspected but not previously diagnosed. She is eager to eat breakfast. She has no other complaints and denies headache, cough, shortness of breath, chest pain, abdominal pain, nausea, vomiting, fever, chills, dysuria, diarrhea or constipa tion. The patient is voiding via Mcmillan catheter. She has not had a bowel movement since admission and a bowel regimen has been implemented. Plan for physical and occupational therapy today. Exam Vital Signs (past 8 hours): - 09/16/19 05:16 09/16/19 05:30 09/16/19 07:48 Temperature 98.1 F 98.6 F Pulse Rate 73 75 87 Respiratory Rate 16 16 14 Blood Pressure 176/78 H 118/54 L 131/62 Pulse Oximetry 100 100 99 Oxygen Delivery Method Nasal Cannula Oxygen Flow Rate 1.5 Narrative Exam Narrative: General: Elderly cachectic and frail-appearing female sitting in bed, in no acute distress, probable [id number] dementia with short-term memory deficit but otherwise appropriately interactive. HEENT: Normocephalic, atraumatic. External ears without defect. Pupils equal, round, and reactive to light. Anicteric sclerae, moist conjunctivae, and no lid lag. Oropharynx free of erythema and cobble stoning with moist mucosa. Bitemporal and full body muscle wasting. Neck: Supple with full range of motion. No jugular venous distension. No lymphadenopathy or thyromegaly. Cardiovascular: Regular rate and rhythm without murmurs, rubs, or gallops appreciated Pulmonary: Clear to auscultation bilaterally without crackles, wheezes, or rhonchi. Normal respiratory effort with no use of accessory muscles. Abdomen: Soft, scaphoid, non-tender, non-distended. No hepatosplenomegaly or masses appreciated. Extremities: No clubbing, cyanosis, or edema. Left lower extremity with dressing in place with small amount of serosanguineous fluid otherwise clean, dry and intact without surrounding erythema, edema or ecchymosis. Skin: Normal temperature, turgor, and texture; no rash, ulcers, or subcutaneous nodules appreciated. Neurological: Cranial nerves grossly intact. Psychiatric: Normal mood and affect. Alert and oriented to person, place and time. Probable zaab-gq-oraorcum dementia with short-term memory deficit. Objective Labs Result Diagrams: 09/16/19 04:40 09/15/19 20:50 Labs: Laboratory Results - last 24 hr 09/14/19 09/15/19 09/15/19 21:05 04:35 20:50 WBC RBC Hgb Hct MCV MCH MCHC RDW Plt Count Sodium 131 L Potassium 3.6 D Chloride 99 Carbon Dioxide 24 BUN 7 Creatinine 0.43 L Estimated GFR > 60.0 BUN/Creatinine Ratio 16.3 Glucose 112 H Calcium 7.7 L Magnesium 2.0 Total Bilirubin 0.3 AST 34 ALT 17 Alkaline Phosphatase 72 Total Protein 6.1 L Albumin 3.3 L Globulin 2.8 Albumin/Globulin Ratio 1.2 TSH 6.39 H Free T4 1.47 COVID-19 PCR Not detected 09/16/19 04:40 WBC 11.0 RBC 2.32 L Hgb 7.5 L Hct 21.9 L MCV 94.2 MCH 32.2 MCHC 34.2 RDW 11.9 Plt Count 198 Sodium Potassium Chloride Carbon Dioxide BUN Creatinine Estimated GFR BUN/Creatinine Ratio Glucose Calcium Magnesium Total Bilirubin AST ALT Alkaline Phosphatase Total Protein Albumin Globulin Albumin/Globulin Ratio TSH Free T4 COVID-19 PCR Assessment & Plan Assessment & Plan narrative: Sophia Mathis is an 79-year-old female with a past medical history significant for CAD, hypertension, hyperlipidemia, hypothyroidism, anxiety, chronic back pain with opiate dependence, insomnia and osteoporosis who presented to [facility] ED after ground level fall with left femur fracture and was subsequently transferred to [facility] for orthopedic surgical repair as Orthopedic surgery was unavailable at [facility]. 1. Acute pathological left angulated comminuted displaced intertrochanteric femur fracture, present on admission. Active. -Patient presented after ground level fall with left lower extremity pain and inability to ambulate. -Left femur x-ray from [facility] demonstrated moderate angulated, mildly foreshortened, comminuted and displaced intertrochanteric left femoral fracture. -COVID-19 negative and ruled out. -Consulted orthopedic surgery, Dr. Lea, who performed intramedullary nailing of left intertrochanteric femur fracture. Continue postoperative management, DVT prophylaxis and pain control per Ortho. -Continue pain control with acetaminophen 650 mg every 6 hours as needed for mild pain, cyclobenzaprine 5 mg every 8 hours as needed for muscle spasms and and oxycodone 2.5-5 mg every 3 hours as needed for severe pain. -Patient has known osteoporosis. Continue calcium and vitamin-D supplementation. Patient will need outpatient treatment for osteoporosis. -Ordered physical and occupational therapy evaluation and treatment, pending. 2. Acute blood loss anemia, not present on admission. Active. -Secondary to acute blood loss from intramedullary nailing of left intertrochanteric femur fracture and dilutional due to IV fluids. -Initial hemoglobin 12.1. Hemoglobin trended down from 9.9 to now 7.5 postoperatively. No overt signs of bleeding. Continue to monitor vital signs and for signs of bleeding closely. Continue to monitor hemoglobin and hematocrit closely. Transfusion goal hemoglobin < 7.0. -Continue Lovenox for DVT prophylaxis per ortho for now but may need to be temporarily held due to anemia and will defer to Ortho. 3. Probable mild to moderate dementia with short-term memory recall deficit and no behavioral disturbance, present on admission. Stable. -Patient has known short-term memory recall deficit with intermittent confusion. The patient's son is now taken role of primary caregiver due to inability to care for herself. Patient's spouse recently past 2 weeks ago. -Ordered SLUMS to be performed by occupational therapy, pending. 4. Hyponatremia, acuity unknown but likely chronic, present on admission. Resolving. -Likely secondary to thiazide diuretic and dehydration. -Initial sodium level 123. Discontinued IV fluids as patient appears adequately hydrated. Sodium level now 131. -Continue to monitor sodium level closely and replete as necessary. 5. Hypokalemia, acuity unknown, present on admission. Resolved. -Likely secondary to chlorthalidone. -Initial potassium level 2.7. Received potassium chloride 40 mEq PO x1 and 40 mEq IV x1. Potassium level trending down now 3.6. Restarted patient's home potassium chloride 10 mEq twice daily. -Continue to monitor potassium level closely and replete as necessary. 6. Hypomagnesemia, acuity unknown, present on admission. Resolved. -Initial magnesium level 1.5. Received magnesium sulfate 2 g IV x1. Magnesium level now 2.0. -Continue to monitor magnesium level closely and replete as necessary. 7. Hypertension, chronic, present on admission. Stable. -Continue amlodipine 2.5 mg daily, lisinopril 20 mg daily and metoprolol tartrate 50 mg twice daily. Discontinued chlorthalidone due to likely chronic electrolyte derangement. 8. CAD and hyperlipidemia, chronic, present on admission. Stable. -EKG demonstrated sinus tachycardia with occasional PVCs and anteroseptal FL age indeterminate. -Continue metoprolol tartrate 50 mg twice daily and pravastatin 20 mg daily. 9. Hypothyroidism, chronic, present on admission. Stable. -TSH 6.39 and free T4 1.47 possibly indicative of subclinical hypothyroidism. Recommend repeat thyroid function testing in 4-6 weeks. -Continue levothyroxine 75 mcg daily. 10. Anxiety, chronic, present on admission. Stable. -Continue home clonazepam 0.25 mg daily at bedtime. 11. Insomnia, chronic, present on admission. Stable. -Continue clonazepam 0.25 mg daily at bedtime and nortriptyline 25 mg daily at bedtime. 12. History of recent aspergillosis pneumonia. -Patient is followed by pulmonology and completed course of treatment for aspergillosis pneumonia. Of note, patient has had aspergillosis pneumonia x2. -Chest x-ray demonstrated mild interstitial pulmonary edema and questionable focal right upper lobe pneumonia. Patient does not have pneumonia by clinical exam or laboratory evaluation. 13. Probable chronic severe protein calorie malnutrition, present on admission. Presumed stable. -BMI 17.7. -Patient appears cachectic with full body muscle wasting. -Consulted dietitian, pending. Code status: Full code DVT prophylaxis: Lovenox Disposition: Patient will likely be discharged to alf facility for continued rehabilitation in 1-2 days once mobilizing. Quality VTE Deep Vein Thrombosis/Pulmonary Embolism Present on Admission: No
[2019-09-16] MEDS: ACETAMINOPHEN 325 MG TABLET 975 MG PO ×2 (09:45→21:04)
[2019-09-16] MEDS: LEVOTHYROXINE 75 MCG TABLET PO (09:46)
[2019-09-16] MEDS: ENOXAPARIN 40 MG/0.4 ML SYRINGE SUBCUT (09:46)
[2019-09-16] MEDS: DOCUSATE 100 MG CAPSULE PO ×2 (09:46→21:04)
[2019-09-16] MEDS: CITALOPRAM 20 MG TABLET 40 MG PO (09:46)
[2019-09-16] MEDS: lisinopriL 20 MG TABLET PO (09:46)
[2019-09-16] MEDS: METOPROLOL IR 50 MG TABLET PO (09:46)
[2019-09-16] MEDS: POTASSIUM CHLORIDE 10 MEQ TAB PO ×2 (09:47→21:05)
[2019-09-16] MEDS: PRAVASTATIN 20 MG TABLET PO (09:47)
[2019-09-16] MEDS: polyethylene glycoL 3350 17 GM POWD.PACK PO (09:47)
--- NOTE | 2019-09-16 10:48 | DIET.PN ---
Dietary Progress Note Assessment: Mrs. Hinkle is SP 1 day intramedullary nailing of left intertrochanteric femur fracture. I was able to asses Mrs. Hinkle today. She reports chronic low appetite. Her larger meal is breakfast which typically is fruit. She states she might nibble for lunch and dinner if she is hungry. 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 Interventions: 1. Educated on importance of energy/protein needs post surgery for recovery. Patient with good understanding. 2. Recommended ONS enlive BID for increased protein and nutrient needs including Na, Ca, Mg. Pt agreeable. Diet Order: General EER: 1250 kcal @ 30cal/kg; 53-60g pro @ 1.3-1.5g/kg PCM/fracture Monitoring/Evaluations: weight, PO's, ONS acceptance. Will provided face to face education when Covid-19 negative.
--- NOTE | 2019-09-16 12:14 | PT.IIE ---
Current Diagnoses Acute posthemorrhagic anemia (09/14/19) Age-related osteoporosis with current pathological fracture, unspecified femur, initial encounter for fracture (09/14/19) Displaced intertrochanteric fracture of left femur, initial encounter for closed fracture (09/14/19) Surgery Performed Operation Date: 09/15/19 17:00 Actual Procedures p Intramedullary Nailing left intertrochanteric fracture(Left) - Zelda Lea MD Surgical History (Last Reviewed 09/15/19 @ 07:54 by Zelda Lea MD) History of appendectomy (Acute) History of hysterectomy (Acute) Medical History (Last Updated 09/15/19 @ 09:56 by Rip Humphrey RN) Aspergillus pneumonia (Acute) CAD (coronary artery disease) (Acute) GE reflux (Acute) Hypercholesterolemia (Acute) Hypertension (Acute) Hypothyroidism (Acute) Physical Therapy Inpatient Evaluation/Re-Eval M1 PT/OT-IP Prior Functional Status Start: 09/16/19 11:12 Freq: NEEDED Status: Active Protocol: Document 09/16/19 11:12 [facility] (Rec: 09/16/19 12:14 [facility] [id number]) Medical Review Prior Functional Status Medical History Reviewed Yes Diet/Fluid Consistency Regular Communication communication with Mrs Hinkle regarding her hip precautions and that she is WBAT, comunication with nursing prior to treatment for pain control and timing treatment after pain meds given at 9:40 AM. Therapy co treated with OT as Slums assessment was ordered. Pt reports she lost her 2 weeks ago to a NM. She reports having 2 sons in [place] and having a dog and cat at home in [place]. Mobility and Gait The patient reports she had a cane for travel and community ambulation but did not use it at all times. Per patient no assistive device was used in her house. She returned 5 weeks ago from traveling in [facility] with her . Activities of Daily Living and IADL's Pt had been performing all ADL 's except cooking and driving which her always did for her. I am not sure if he did these activities for her due to her early dementia or just because. Social History Household Members family,children Living Arrangements House Number of Floors (Floors) Two Floors Number of Stairs To Enter/Railing? 1 step to get into the kitchen and main living area Home Environment Standard Height Toilet Home Equipment Straight Cane Employment Status Retired Additional Social History Comment pts 2 weeks ago, pt has 2 sons who live in [place]. M1 PT/OT-IP Prior Functional Status Start: 09/16/19 11:33 Freq: NEEDED Status: Active Protocol: Document 09/16/19 11:34 [facility] (Rec: 09/16/19 12:14 [facility] [id number]) Medical Review Prior Functional Status Medical History Reviewed Yes Communication Independent, however has decreased short term memory. Mobility and Gait Pt states use of SPC when out. Activities of Daily Living and IADL's Per pt states did all her dressing, toilet and bathing needs of her own and that she no longer cooks and has someone come in to do house cleaning. Social History Household Members family,children Living Arrangements House Number of Floors (Floors) Two Floors Number of Stairs To Enter/Railing? Pt questionable historian due to decreased memory. Pt states has no steps from the garage and one step into the kitchen, living amd bedroom. 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 M2 PT-IP Current Condition Start: 09/16/19 11:12 Freq: NEEDED Status: Active Protocol: Document 09/16/19 11:12 [facility] (Rec: 09/16/19 12:14 [facility] [id number]) Physical Therapy Current Condition Current Condition Evaluation Date 09/16/19 Treatment Diagnosis left intertrochanteric femur fracture s/p intermedullary nail fixation Onset Date 09/14/19 Precautions Other Precautions WBAT left LE Weight Bearing Status Weight Bearing Status Weight Bear as Tolerated M3 PT-IP Subjective Start: 09/16/19 11:12 Freq: NEEDED Status: Active Protocol: Document 09/16/19 11:12 [facility] (Rec: 09/16/19 12:14 [facility] [id number]) Subjective Physical Therapy Visit Type Type Initial Evaluation Visit Start Time 10:00 Visit Stop Time 11:00 Total Visit Minutes 60 Notes 79 year old female who suffered a GLF on 09/14/19, she is post op day 1 intermedullary nail left intertrochanteric hip fracture . Pt is on droplet precautions today as a second covid test is pending. Physical Therapy Visit Comments Patient Comments Pt is alert and laying in bed with head of bed elevated. She agrees to PT Patient Goals The patient would like to see her sons Therapy Pain Assessment Pain When Pain Assessed At Rest Pain Present Pain Present Pain Reported Location left hip Intensity 9 Scale Used Numeric (1 - 10) Pain Behaviors Facial Grimacing Pain Management Techniques Apply Cold,Re-positioning, Timing of Activity with Medications M4 PT-IP Mobility and Gait Start: 09/16/19 11:12 Freq: NEEDED Status: Active Protocol: Document 09/16/19 11:12 [facility] (Rec: 09/16/19 12:14 [facility] [id number]) PT-Bed Mobility Assessment Supine to Sit Supine to Sit Total Assistance,2 Person Assistance,Head of Bed Elevated Sit to Supine Sit to Supine Total Assistance,2 Person Assistance Scooting Scooting to Edge of Bed Dependent Scooting Up and Down in Bed Dependent PT-Transfer Assessment Sit to and From Stand Sit to and from Stand Maximum Assistance,2 Person Assistance Equipment Transfer Assistive Device Gait Belt,Front Wheeled Walker Orthotic/Prosthetic Devices or Brace: No Transfers Transfer Destination Chair Comments Mobility Comments PT AND OT CO TREATED: pt was unable to assist with her bed mobility and transfer to sitting. She was able to actively pump her ankles, perform a quad squeeze on the left and assist with a small ROM of knee flexion. Once in a seated position at the edge of the bed she used the grap bar on the bed to help support her. She sat for over 5 minutes and particitpated in combing her hair, talking on the phone, and drinking some water. Her blood pressure at this point had dropped to 90/ 53 in sitting. She was max A x 2 for sit-stand with fww. She was able to get into a full standing position after 3 attempts of sit-stand. The goal was to transfer her to the bedside chair but at this point her blood pressure dropped 89/51 and she was yelling in pain so we decided to have her sit back down. As soon as we sat her back down pain levels decreased. She did not assist with transfer back to supine and for positioning her in bed. Blood pressure came back up to 105/ 60 once positioned in bed. Pt was given ice over the left hip to help with pain control and reducing inflammation. PT-Balance Assessment Sitting Balance and Reactions Static Sitting Balance Ability Fair Dynamic Sitting Balance Ability Fair Standing Balance and Reactions Static Standing Balance Ability Poor Dynamic Standing Balance Ability Poor M5 PT-IP Objective Assessments Start: 09/16/19 11:12 Freq: NEEDED Status: Active Protocol: Document 09/16/19 11:12 [facility] (Rec: 09/16/19 12:14 [facility] [id number]) Orientation Orientation/Cognition Level of Alertness Confusional State Orientation Name,Year Memory Description Short Term Impaired Comments per patients son she has shown symptoms of early dementia. OT performed a Slums asssement with her with was a which implies Dementia Gross Range of Motion Upper Extremity ROM Assessment Within Functional Limits Lower Extremity ROM Assessment Left Impaired Impairments able to passively flex left knee to 40 degrees, pt able to actively flex knee 10 degrees PROM abduction to 20 degrees Left LE Strength Upper Extremity Strength Assessment Within Functional Limits Lower Extremity Strength Assessment Left Impaired Comments Strength Comments able to actively perform ankle pumps, quad sets, gluteal squeeze left LE Coordination Assessment Gross Coordination Gross Coordination WNL Sensation Assessment Sensation Gross Sensation WNL Muscle Tone Muscle Tone WNL Yes Other Assessments Other Other Assessments 79 yo female admitted 09/14/19 following a GLF suffering a left intertrochanteric hip fracture. She is day 1 post op intermedullary nail of the left hip. The patient had lived at home with her and was independent with ADL' s expect driving and cooking. She states that her wanted to do this for her. I am not sure if this was because of early dementia or not. Her 2 weeks ago at home from a NM . The patient has 2 sons who live in [place]. She was co treated with OT today for treatment. She was dependant for transfers to the edge of the bed for dangling. At this point she was able to balance her self and used the bed grab bar for stability. She was Max A x 2 for sit-stand with fww. Her blood pressure dropped in standing and her pain levels increased. At this point it was decided to have her sit back down and she was transferred back to supine in bed. Her head was elevated and she was given water. The pain levels seemed to calm down once movement of her hip stopped. At this point she was given ice to her left hip and OT went ahead with the Slums examination. The patient has hearing aides however the batteries were so she would benefit from having one of her son's bring in batteries. M6 PT-IP Treatment Start: 09/16/19 11:12 Freq: NEEDED Status: Active Protocol: Document 09/16/19 11:12 [facility] (Rec: 09/16/19 12:14 [facility] [id number]) Physical Therapy Treatment Exercises Exercises Ankle Pumps,Gluteal Sets,Quad Sets,Heel Slides,Supine Hip Abduction Knee ROM Measurement 40 degrees PROM 10 degrees AROM Left LE Education Education Provided Weight Bearing Status,Post-Op Packet,Safety Equipment Issued Equipment Type and Company FWW and gait belt were used for transfer Other Treatments Other Treatment Performed educated on WBAT through the left LE M7 PT-IP Assessment and Plan Start: 09/16/19 11:12 Freq: NEEDED Status: Active Protocol: Document 09/16/19 11:12 [facility] (Rec: 09/16/19 12:14 [facility] [id number]) PT Summary Assessment and Plan Potential Rehabilitation Potential Good Status of Condition at Evaluation Evolving Summary Impairments Pain,ROM,Strength,Balance, Cognition,Bed Mobility, Transfers,Gait,Activity Tolerance Assessment Summary 79 y/o female admitted 09/14/19 following a GLF suffering a left intertrochanteric hip fracture. She is day 1 post op intermedullary nail of the left hip. The patient had lived at home with her and was independent with ADL' s expect driving and cooking. She states that her wanted to do this for her. I am not sure if this was because of early dementia or not. Her 2 weeks ago at home from a [place] . The patient has 2 sons who live in [place]. She was co treated with OT today for treatment. She was dependant for transfers to the edge of the bed for dangling. At this point she was able to balance her self and used the bed grab bar for stability. She was Max A x 2 for sit-stand with fww. Her blood pressure dropped in standing and her pain levels increased. At this point it was decided to have her sit back down and she was transferred back to supine in bed. Her head was elevated and she was given water. The pain levels seemed to calm down once movement of her hip stopped. At this point she was given ice to her left hip and OT went ahead with the Slums examination. The patient has hearing aides however the batteries were so she would benefit from having one of her son's bring in batteries. Pt to discharge once stable to SNF in [place]. Goals Bed Mobility Goal Moderate Assistance Transfer Goal Moderate Assistance Gait Goal Moderate Assistance Gait Distance 20 feet Days to Meet Goals 5 Frequency of Treatment Frequency Of Treatment Twice a Day Treatment Plan Physical Therapy Treatment Plan Bed Mobility Training,Transfer Training,Gait Training, Therapeutic Exercise,Post Op Education,Hot or Cold Pack Recommendations To Nursing Amount of Assist Needed 2 Person Assist Discharge Recommendations PT Discharge Recommendations SNF Rehab Other Discharge Recommendations pt will be going to a SNF in [place] closer to where her boys live Transportation Needs at Discharge Stretcher/Ambulance
--- NOTE | 2019-09-16 12:14 | OT.IP.EVAL ---
Current Diagnoses Acute posthemorrhagic anemia (09/14/19) Age-related osteoporosis with current pathological fracture, unspecified femur, initial encounter for fracture (09/14/19) Displaced intertrochanteric fracture of left femur, initial encounter for closed fracture (09/14/19) Surgery Performed Operation Date: 09/15/19 17:00 Actual Procedures p Intramedullary Nailing left intertrochanteric fracture(Left) - Zelda Lea MD Past Medical History (Last Updated 09/15/19 @ 09:56 by Rip Humphrey RN) Aspergillus pneumonia (Acute) CAD (coronary artery disease) (Acute) GE reflux (Acute) Hypercholesterolemia (Acute) Hypertension (Acute) Hypothyroidism (Acute) Surgical History (Last Reviewed 09/15/19 @ 07:54 by Zelda Lea MD) History of appendectomy (Acute) History of hysterectomy (Acute) Occupational Therapy Inpatient Evaluation/Re-Eval M1 PT/OT-IP Prior Functional Status Start: 09/16/19 11:12 Freq: NEEDED Status: Active Protocol: Document 09/16/19 11:12 [facility] (Rec: 09/16/19 12:14 [facility] [id number]) Medical Review Prior Functional Status Medical History Reviewed Yes Diet/Fluid Consistency Regular Communication communication with Mrs Hinkle regarding her hip precautions and that she is WBAT, comunication with nursing prior to treatment for pain control and timing treatment after pain meds given at 9:40 AM. Therapy co treated with OT as Slums assessment was ordered. Pt reports she lost her 2 weeks ago to a OK. She reports having 2 sons in [place] and having a dog and cat at home in [place]. Mobility and Gait The patient reports she had a cane for travel and community ambulation but did not use it at all times. Per patient no assistive device was used in her house. She returned 5 weeks ago from traveling in [facility] with her . Activities of Daily Living and IADL's Pt had been performing all ADL 's except cooking and driving which her always did for her. I am not sure if he did these activities for her due to her early dementia or just because. Social History Household Members family,children Living Arrangements House Number of Floors (Floors) Two Floors Number of Stairs To Enter/Railing? 1 step to get into the kitchen and main living area Home Environment Standard Height Toilet Home Equipment Straight Cane Employment Status Retired Additional Social History Comment pts 2 weeks ago, pt has 2 sons who live in [place]. M1 PT/OT-IP Prior Functional Status Start: 09/16/19 11:33 Freq: NEEDED Status: Active Protocol: Document 09/16/19 11:34 [facility] (Rec: 09/16/19 12:14 [facility] [id number]) Medical Review Prior Functional Status Medical History Reviewed Yes Communication Independent, however has decreased short term memory. Mobility and Gait Pt states use of SPC when out. Activities of Daily Living and IADL's Per pt states did all her dressing, toilet and bathing needs of her own and that she no longer cooks and has someone come in to do house cleaning. Social History Household Members family,children Living Arrangements House Number of Floors (Floors) Two Floors Number of Stairs To Enter/Railing? Pt questionable historian due to decreased memory. Pt states has no steps from the garage and one step into the kitchen, living and bedroom. 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 M2 OT-IP Current Condition Start: 09/16/19 11:33 Freq: Status: Active Protocol: Document 09/16/19 11:34 [facility] (Rec: 09/16/19 12:14 [facility] [id number]) Occupational Therapy Current Condition Current Condition Evaluation Date 09/16/19 Treatment Diagnosis S/P Intramedullary nail left intertrochanteric hip fx. Diagnosis Onset Date 09/14/19 Weight Bearing Status Weight Bearing Status Weight Bear as Tolerated M3 OT- IP Subjective and Pain Start: 09/16/19 11:33 Freq: Status: Active Protocol: Document 09/16/19 11:34 [facility] (Rec: 09/16/19 12:14 [facility] [id number]) OT- Subjective Occupational Therapy Visit Type Type Initial Evaluation Visit Start Time 10:00 Visit Stop Time 11:13 Total Visit Minutes 73 Occupational Therapy Visit Comments Patient Comments Pt agreeable to try to get up. Patient/Caregiver Goals Pt not able to state a goal and just wanting to call her son. OT Pain Assessment Pain When Pain Assessed At Rest Pain Present Pain Present Pain Reported Location left hip Intensity 9 Scale Used Numeric (1 - 10) M4 OT- IP ADL's Start: 09/16/19 11:33 Freq: Status: Active Protocol: Document 09/16/19 11:34 [facility] (Rec: 09/16/19 12:14 [facility] [id number]) OT MME-Jhgk-Waybjru General Evaluation Self-Feeding Ability Independent Comments OT Self-Feeding Comments Pt able to drink from the water bottle on her own. OT ADL-Grooming General Evaluation Grooming Ability Minimal Assistance Comments OT Grooming Comments Pt able to wash her face after set-up and brush her hair while sitting on the edge of the bed. Pt needing DANIELLE for completeness on her hair. OT ADL-Oral Care Comments Oral Care Comments Pt not wanting to do at this time. OT ADL-Dressing Comments OT Dressing Comments Not performed, but dependent for LB dressing needs at this time. OT ADL-Toileting Comments OT Toileting Comments [place] in. OT ADL-Bathing Comments OT Bathing Comments Not performed. M5 OT- IP IADL's Start: 09/16/19 11:33 Freq: Status: Active Protocol: Document 09/16/19 11:34 [facility] (Rec: 09/16/19 12:14 [facility] [id number]) OT-Instrumental Activities of Daily Living Home Safety Awareness Awareness of Need for Assistance at Home Decreased Awareness Ability to Problem Solve Emergency Unable to Problem Solve Situations Medication Management Medication Management Caregiver Administers Money Management Money Management Caregiver Provides Assistance Meal Preparation Meal Preparation Caregiver Provides Assist Alarm Investigator Alarm Investigator Caregiver Provides Assist Driving Driving Caregiver Provides Assist M6 OT- IP Functional Cognition Start: 09/16/19 11:33 Freq: Status: Active Protocol: Document 09/16/19 11:34 [facility] (Rec: 09/16/19 12:14 [facility] [id number]) Cognitive Factors Limiting Selfcare Function Cognitive Ability Level of Alertness Alert,Confusional State Patient Orientation Name,Date,Year Attention Span Ability Capable of Focused Attention, Unable to Sustain Attention Ability to Follow Commands Able to Follow One Step Commands Memory Description Short Term Impaired,Working Impaired Problem Solving Ability Unable to Identify Errors, Needs Assist to Identify Solutions Executive Function Ability Unable to Filter Distractions, Unable to Make Plans,Unable to Organize Plans,Unable to Remember Details Cognitive Tests SLUMS Pt scored 16/30 , normal score for pt's education is 27/30. Pt current score implies dementia. Pt's score may also had been affected on therapist having to wear a mask, and that she was having a hard time hearing due to batteries not working for her hearing aid. Pt initially states in was 1961 when asking her for the year, but after asking her again paused and then able to state 2019. Pt not able to calculation of 2 digit subtraction problem, able to recall 12 animals in 1 minute, unable to recall any on the 5 objects after time passed, not able to draw the clock hands correctly, and only able to recall 2 out of four question correctly after a paragraph read. Cognitive Comments Cognitive Assessment Comments Pt alert but confused, at one point, pt asked where she was and not initially realizing that she was in the hospital. Pt having a hard time to remember he cat's name. Pt having difficulty to recall the set-up of her house. Pt no awareness for disposition after hospital stay and states , i do no know, my son is taking care of everything. Pt initially states it was 3: 00pm however after pointing out specifically to her where the hour hands were able to correct herself to states it was 10:15 am. OT- Vision and Hearing OT- Hearing Assessment OT- Hearing Assessment Hearing Impaired,Use of Hearing Aids OT- Vision Assessment Visual Acuity Glasses All The Time M7 OT- IP Mobility and Balance Start: 09/16/19 11:33 Freq: Status: Active Protocol: Document 09/16/19 11:34 [facility] (Rec: 09/16/19 12:14 [facility] [id number]) OT- Bed Mobility Assessment Supine to Sit Supine to Sit Assist Total Assistance,2 Person Assistance,Head of Bed Elevated,Bedrails Sit to Supine Sit to Supine Assist Total Assistance,2 Person Assistance,Bedrails Scooting Scooting to Edge of Bed Total Assistance,2 Person Assistance OT-Transfer Assessment Sit to and From Stand Sit to and from Stand Maximum Assistance,2 Person Assistance,Use of Upper Extremities Devices Transfer Assistive Devices Gait Belt,Front Wheeled Walker Comments Mobility Comments Pt depedent at this time for get to and from supine to sit. Pt however after set-up to get pt to the edge of the bed able to hold bed rail for sitting and also able to sit SBA to wash her face and brush her hair. Made 3 attempts to stand and able to stand only for a few second and then having to sit back down and BP 89/51 and determined with Pt to lie pt back down in bed. BP 105/60. Spoke to nursing that if trying to get pt up best to use mechanical lift at this time as unable to fully assess for mobility needs due to her pain and decreased BP. OT- Balance Assessment Sitting Balance and Reactions Static Sitting Balance Ability Fair Standing Balance and Reactions Static Standing Balance Ability Poor M8 OT- IP Objective Assessments Start: 09/16/19 11:33 Freq: Status: Active Protocol: Document 09/16/19 11:34 [facility] (Rec: 09/16/19 12:14 [facility] [id number]) OT Gross Range of Motion Upper Extremity Range of Motion Assessment Within Functional Limits OT Strength Upper Extremity Strength Assessment Within Functional Limits OT-Muscle Tone Assessment Muscle Tone WNL Yes M9 OT- IP Assessment and Plan Start: 09/16/19 11:33 Freq: Status: Active Protocol: Document 09/16/19 11:34 [facility] (Rec: 09/16/19 12:14 [facility] [id number]) OT Summary Assessment and Plan Potential Rehabilitation Potential Good Analytic Complexity at Evaluation Low Summary OT Impairments Pain,Balance,Functional Cognition,Functional Mobility, Grooming,Dressing,Toileting, Bathing,Toilet Transfers, Shower Transfers,Activity Tolerance Progress Towards Goals Slow Progress due to Pain,Slow Progress due to Activity Tolerance,Slow Progress due to Cognition Assessment Summary Pt low complexity and main barriers are pain, decreased short term memory and now dependent for mobility needs and only able to tolerate standing at this time. Prior pt's a couple weeks ago and that her son prior was staying with her to help care for her. When medically stable, suggest pt go to skilled rehab. Goals Self-Feeding Goal Independent Grooming Goal Standby Assistance Dressing Goal Moderate Assistance Toileting Goal Moderate Assistance Bathing Goal Moderate Assistance Toilet Transfer Goal Moderate Assistance Shower Transfer Goal Moderate Assistance Days to Meet Goals 15 Frequency of Treatment Frequency Of Treatment Once a Day Treatment Plan OT Treatment Plan ADL Training,Functional Cognition Training,Functional Mobility,Patient/Family Education,Discharge Planning Other Treatment Recommendations and Next Transfer to [facility] with MAX A X 2 Treatment Focus and FWW. Discharge Recommendations OT Discharge Recommendations SNF Rehab Home Equipment Needs Defer to SNF Transportation Needs at Discharge Stretcher/Ambulance
--- NOTE | 2019-09-16 12:44 | CM.DANOTE ---
DCP/Continued: Reviewed chart. Placed call to [facility] spoke with Pierre ph# [phone] or [phone] she reports that they can accept this patient when medically stable. They are requesting 2 negative COVID tests. Patient underwent surgery last pm. Unable to do much therapy today secondary to BP issues. Placed call to son/Tommy re: the above. He reports that they are still considering whether or not patient could come home with HH an assistance from family? Notified son that current recommendation is SNF and that he should discuss with provider. Also spoke with OT/Sophia about the possibility of doing/showing son caregiver training. Provider/Dr. Rutherford requesting that caregiver training be discussed with surgeon before pursuing. P: [facility] has accepted when patient medically stable. Facility located in [place] and family in agreement to provide transportation. PASRR needed to be completed. Orders to be faxed and facility notified when patient medically stable for discharge. Family continue to be considering home with HH? [facility] Discharge Planning/Care Management CM Discharge Assessment Start: 09/15/19 13:13 Freq: Status: Active Protocol: Document 09/15/19 13:13 [facility] (Rec: 09/15/19 13:42 [facility] [id number]) Discharge Planning Assessment Assigned Water Tester [facility] Coleman Contact Information Tommy Hinkle (son) Advance Directives? Yes History Provided By Patient Prior Living Arrangements House Household Members family,children Type of transporation used prior to Relies on Others admit Independent with ADL's Yes Is patient alert and oriented? Under precautions for COVID 19 Caregiver for Another No Barriers to Discharge No Discharge Plan Custodial Facility Referrals Initiated Custodial If patient plan is SNF: Has PASSR been No completed? SNF/HH Preference Family first choice is 1) [facility] in [place]. Contact Name/Phone Pierre Has Agency SNF been contacted Yes Comment Information has been faxed to [phone] Review Status In Process Next Review Type Continued Stay Review
--- NOTE | 2019-09-16 14:07 | PC.NURSE ---
Transfer Note - Transferred to room 224 from 227 at this time. All belongings with pt including glasses and hearing aids. Droplet/contact precautions maintained. Continues on RA with SpO2 96%.
[2019-09-16] MEDS: CALCIUM CARB/VIT D3 500/200 TABLET 1 EACH PO (17:33)
[2019-09-16 19:16] LABS: COVID19 Sendout Not Detected (Not Detect)
[2019-09-16] MEDS: SENNOSIDES 8.6 MG TABLET 17.2 MG PO (21:04)
[2019-09-16] MEDS: clonazePAM 0.5 MG TABLET 0.25 MG PO (21:05)
[2019-09-17] VITALS (15 sets, daily range): BP systolic 99–134; BP diastolic 46–66; PULSE 64–95; RESP 14–18; TEMP 36.4–37.6; O2SAT 92–100
[2019-09-17 05:06] LABS: Add Manual Diff / Slide Review NO; Basophils Absolute Auto 0 /uL (0-100); Basophils Percent Auto 0.6 % (0-2); Eosinophils Absolute Auto 600 /uL (0-450); Eosinophils Percent Auto 7.6 % (2-4); Lymphocytes Absolute Auto 1800 /uL (1100-4500); Lymphocytes Percent Auto 23.2 % (25-40); Mean Corpuscular Hemoglobin 32.6 PG (26-34); Mean Corpuscular Volume 93.1 fL (80-100); Monocytes Absolute Auto 800 /uL (0-900); Monocytes Percent Auto 10.1 % (3-14); Neutrophils Absolute Auto 4400 /uL (1500-7000); Neutrophils Percent Auto 58.5 % (50-75); Platelet Count 187 X10^3/uL (150-400); Red Blood Cell Count 1.85 X10^6/uL (4.0-5.2); Red Cell Distribution Width 11.8 % (11.6-14.8); White Blood Cell Count 7.6 X10^3/uL (4.5-11.0)
[2019-09-17 05:11] LABS: BUN Creatinine Ratio 30.5 (6-22); Blood Urea Nitrogen 18 mg/dL (7-17); Calcium 7.4 mg/dL (8.4-10.2); Carbon Dioxide 28 mmol/L (22-32); Chloride 98 mmol/L (98-107); Estimated Glomerular Filt Rate > 60.0 mL/min (>60); Glucose 106 mg/dL (80-110); HEMOLYSIS < 15 (0-50); Potassium 3.3 mmol/L (3.4-5.1); Sodium 127 mmol/L (137-145)
[2019-09-17 05:26] LABS: Hematocrit 17.2 % (36-46)
--- NOTE | 2019-09-17 06:02 | PC.NURSE ---
Pt is AOx3, sometimes forgetful, is here s/p GLF, POD 2 for L hip repair of intertrochanteric fracture. VSS, morning labs revealed ciritcal H/H of 11/17.2 (pt asymptomatic), Dr. Coreas notified, ordered 2u pRBC's and wait for Dr. Rutherford to consent patient for transfusion. Will continue to monitor. Bed is in the low position, call light is within reach and bed alarm is set.
[2019-09-17 08:18] LABS: Hematocrit 17.6 % (36-46); Hemoglobin 6.1 g/dL (12.0-16.0)
--- NOTE | 2019-09-17 08:21 | P.PN_ITS ---
Subjective Subjective Date Patient Seen: 09/17/19 Interval history: Sophia Mathis is an 79-year-old female with a past medical history significant for CAD, hypertension, hyperlipidemia, hypothyroidism, anxiety, chronic back pain with opiate dependence, insomnia and osteoporosis who pr esented to [facility] ED after ground level fall with left femur fracture and was subsequently transferred to [facility] for orthopedic surgical repair as Orthopedic surgery was unavailable at [facility]. The patient is resting in bed comfortably. The patient has [id number] dementia with short-term memory recall deficit and is at her baseline mentation. She reports pain in her left lower extremity that she reports is a +8/10 and worse with movement. The patient has no other complaints and denies headache, cough, shortness of breath, chest pain, abdominal pain, nausea, vomiting, fever, chills, dysuria, diarrhea or constipation. The patient is voiding via Mcmillan catheter. She is NPO for possible surgery later this afternoon. Exam Vital Signs (past 8 hours): - 09/17/19 02:26 09/17/19 02:27 09/17/19 05:00 Temperature 99.2 F Pulse Rate 76 Respiratory Rate 18 Blood Pressure 121/47 L Pulse Oximetry 100 95 99 Oxygen Delivery Method Room Air Oxygen Flow Rate 0 Narrative Exam Narrative: General: Elderly cachectic and frail-appearing female sitting in bed, in no acute distress, probable moderate dementia with short-term memory deficit but otherwise appropriately interactive. HEENT: Normocephalic, atraumatic. External ears without defect. Pupils equal, round, and reactive to light. Anicteric sclerae, moist conjunctivae, and no lid lag. Oropharynx free of erythema and cobble stoning with moist mucosa. Bitemporal and full body muscle wasting. Neck: Supple with full range of motion. No lymphadenopathy or thyromegaly. Cardiovascular: Regular rate and rhythm without murmurs, rubs, or gallops appreciated. Pulmonary: Clear to auscultation bilaterally without crackles, wheezes, or rhonchi. Normal respiratory effort with no use of accessory muscles. Abdomen: Soft, scaphoid, non-tender, non-distended. No hepatosplenomegaly or masses appreciated. Extremities: No clubbing, cyanosis, or edema. Left lower extremity with dressing in place with small amount of serosanguineous fluid otherwise clean, dry and intact without surrounding erythema, edema or ecchymosis. Skin: Normal temperature, turgor, and texture; no rash, ulcers, or subcutaneous nodules appreciated. Neurological: Cranial nerves grossly intact. Psychiatric: Normal mood and affect. Alert and oriented to person, place and time. Moderate dementia with short-term memory deficit. Objective Labs Result Diagrams: 09/17/19 08:04 09/17/19 04:50 Labs: Laboratory Results - last 24 hr 09/14/19 09/16/19 09/17/19 21:25 08:25 04:50 WBC 7.6 RBC 1.85 L Hgb 6.0 L* Hct 17.2 L* MCV 93.1 MCH 32.6 MCHC 35.0 RDW 11.8 Plt Count 187 Neut % (Auto) 58.5 Lymph % (Auto) 23.2 L [place] % (Auto) 10.1 Eos % (Auto) 7.6 H Baso % (Auto) 0.6 Neut # (Auto) 4400 Lymph # (Auto) 1800 [place] # (Auto) 800 Eos # (Auto) 600 H Baso # (Auto) 0 Sodium Potassium Chloride Carbon Dioxide BUN Creatinine Estimated GFR BUN/Creatinine Ratio Glucose Calcium Magnesium COVID-19 PCR Not detected Blood Type B Positive Antibody Screen Negative Crossmatch See Detail 09/17/19 09/17/19 04:50 08:04 WBC RBC Hgb 6.1 L* Hct 17.6 L* MCV MCH MCHC RDW Plt Count Neut % (Auto) Lymph % (Auto) [place] % (Auto) Eos % (Auto) Baso % (Auto) Neut # (Auto) Lymph # (Auto) [place] # (Auto) Eos # (Auto) Baso # (Auto) Sodium 127 L Potassium 3.3 L Chloride 98 Carbon Dioxide 28 BUN 18 H Creatinine 0.59 Estimated GFR > 60.0 BUN/Creatinine Ratio 30.5 H Glucose 106 Calcium 7.4 L Magnesium 2.0 COVID-19 PCR Blood Type Antibody Screen Crossmatch Assessment & Plan Assessment & Plan narrative: Sophia Mathis is an 79-year-old female with a past medical history significant for CAD, hypertension, hyperlipidemia, hypothyroidism, anxiety, chronic back pain with opiate dependence, insomnia and osteoporosis who presented to [facility] ED after ground level fall with left femur fracture and was subsequently transferred to [facility] for orthopedic surgical repair as Orthopedic surgery was unavailable at [facility]. 1. Acute pathological left angulated comminuted displaced intertrochanteric femur fracture, present on admission. Active. -Patient presented after ground level fall with left lower extremity pain and inability to ambulate. -Left femur x-ray from [facility] demonstrated moderate angulated, mildly foreshortened, comminuted and displaced intertrochanteric left femoral fracture. -COVID-19 negative and ruled out. -Consulted orthopedic surgery, Dr. Lea, who performed intramedullary nailing of left intertrochanteric femur fracture. Continue postoperative management, DVT prophylaxis and pain control per Ortho. -Continue pain control with acetaminophen 975 mg 3 times daily for mild pain, cyclobenzaprine 5 mg every 8 hours as needed for muscle spasms and and oxycodone 2.5-5 mg every 3 hours as needed for moderate to severe pain. -Patient has known osteoporosis. Continue calcium and vitamin-D supplementation. Patient will need outpatient treatment for osteoporosis. -Continue physical and occupational therapy evaluation and treatment. 2. Acute blood loss anemia, not present on admission. Active. -Secondary to acute blood loss from intramedullary nailing of left intertrochanteric femur fracture and hemodilutional due to IV fluids. Chronic portion likely secondary to nutritional deficiencies and dementia. -Initial hemoglobin 12.1. Hemoglobin trended down from 9.9 to now 6.0 postoperatively. Plan to transfuse patient with 2 units PRBC today. No overt signs of bleeding. Continue to monitor vital signs for signs of bleeding and hemoglobin and hematocrit closely. Transfusion goal hemoglobin < 7.0. -Held Lovenox for DVT prophylaxis due to anemia per ortho. Defer future DVT prophylaxis to orthopedic surgery. -Ordered iron profile, B12 and folate levels, pending. 3. Moderate dementia with short-term memory recall deficit and no behavioral disturbance, present on admission. Stable. -Patient has known short-term memory recall deficit with intermittent confusion. The patient's son is now taken role of primary caregiver due to inability to care for herself. Patient's spouse recently past 2 weeks ago. -SLUMS performed by occupational therapy scored +16/30 which is indicative of dementia. 4. Hyponatremia, acuity unknown but likely chronic, present on admission. Resolving. -Likely secondary to thiazide diuretic and dehydration due to dementia and decreased PO intake. Discontinued chlorthalidone indefinitely. -Initial sodium level 123. Discontinued IV fluids once patient was adequately hydrated. Sodium level trended up to 131 and now trending back down at 127. Continue to encourage PO intake of fluids. -Continue to monitor sodium level closely and replete as necessary. 5. Hypokalemia, acuity unknown, present on admission. Resolved. -Likely secondary to chlorthalidone. -Initial potassium level 2.7. Received potassium chloride 40 mEq PO x1 and 40 mEq IV x1. Potassium level trending down now 3.3. Plan to give potassium chloride 60 mEq IV x1 today. Continue home potassium chloride 10 mEq twice daily. -Continue to monitor potassium level closely and replete as necessary. 6. Hypomagnesemia, acuity unknown, present on admission. Resolved. -Initial magnesium level 1.5. Received magnesium sulfate 2 g IV x1. Magnesium level now 2.0. -Continue to monitor magnesium level closely and replete as necessary. 7. Hypertension, chronic, present on admission. Stable. -Continue amlodipine 2.5 mg daily, lisinopril 20 mg daily and metoprolol tartrate 50 mg twice daily. Discontinued chlorthalidone indefinitely due to likely chronic electrolyte derangement. 8. CAD and hyperlipidemia, chronic, present on admission. Stable. -EKG demonstrated sinus tachycardia with occasional PVCs and anteroseptal NC age indeterminate. -Continue metoprolol tartrate 50 mg twice daily and pravastatin 20 mg daily. 9. Hypothyroidism, chronic, present on admission. Stable. -TSH 6.39 and free T4 1.47 possibly indicative of subclinical hypothyroidism. Recommend repeat thyroid function testing in 4-6 weeks. -Continue levothyroxine 75 mcg daily. 10. Anxiety, chronic, present on admission. Stable. -Continue home clonazepam 0.25 mg daily at bedtime. 11. Insomnia, chronic, present on admission. Stable. -Continue clonazepam 0.25 mg daily at bedtime and nortriptyline 25 mg daily at bedtime. 12. History of recent aspergillosis pneumonia. -Patient is followed by pulmonology and completed course of treatment for aspergillosis pneumonia. Of note, patient has had aspergillosis pneumonia x2. -Chest x-ray demonstrated mild interstitial pulmonary edema and questionable focal right upper lobe pneumonia. Patient does not have pneumonia by clinical exam or laboratory evaluation. 13. Probable chronic severe protein calorie malnutrition, present on admission. Presumed stable. -BMI 17.7. -Patient appears cachectic with full body muscle wasting. -Consulted dietitian, pending. Code status: Full code DVT prophylaxis: Lovenox has been held, SCD's Disposition: [facility] will likely be [facility] in 1-2 days once mobilizing and anemia is stable. Quality VTE Deep Vein Thrombosis/Pulmonary Embolism Present on Admission: No
[2019-09-17] MEDS: POTASSIUM CHLORIDE 60 MEQ in SODIUM CHLORIDE 0.9% 500 ML 88.333 ML IV (08:35)
[2019-09-17] MEDS: OXYCODONE IR 5 MG TABLET 2.5 MG PO ×2 (08:45→17:30)
[2019-09-17] MEDS: OXYCODONE IR 5 MG TABLET PO ×2 (08:45→17:29)
[2019-09-17] MEDS: ACETAMINOPHEN 325 MG TABLET 975 MG PO ×3 (08:46→20:57)
[2019-09-17] MEDS: CALCIUM CARB/VIT D3 500/200 TABLET 1 EACH PO ×2 (08:46→17:55)
[2019-09-17] MEDS: CITALOPRAM 20 MG TABLET 40 MG PO (08:47)
[2019-09-17] MEDS: DOCUSATE 100 MG CAPSULE PO ×2 (08:48→20:58)
[2019-09-17] MEDS: METOPROLOL IR 50 MG TABLET PO ×2 (08:48→20:58)
[2019-09-17] MEDS: LEVOTHYROXINE 75 MCG TABLET PO (08:48)
[2019-09-17] MEDS: polyethylene glycoL 3350 17 GM POWD.PACK PO (08:49)
[2019-09-17] MEDS: CYCLOBENZAPRINE 5 MG TABLET PO ×2 (09:00→20:58)
[2019-09-17] MEDS: SODIUM CHLORIDE 0.9% FLUSH 10 ML IV (09:00)
[2019-09-17] MEDS: POTASSIUM CHLORIDE 10 MEQ TAB PO ×2 (09:00→20:57)
[2019-09-17] MEDS: PRAVASTATIN 20 MG TABLET PO (09:00)
--- NOTE | 2019-09-17 09:52 | PM.PNPO.1 ---
Subjective Subjective Date Patient Seen: 09/17/19 Time Patient Seen: 09:52 Interval history: She is currently getting transfused for acute blood loss anemia. Pain is getting better in the leg Exam Vital Signs (past 8 hours): - 09/17/19 02:26 09/17/19 02:27 09/17/19 05:00 Temperature 99.2 F Pulse Rate 76 Respiratory Rate 18 Blood Pressure 121/47 L Pulse Oximetry 100 95 99 09/17/19 07:30 09/17/19 08:33 09/17/19 08:49 Temperature 99.3 F 99.1 F 98.6 F Pulse Rate 84 81 95 H Respiratory Rate 16 15 16 Blood Pressure 111/51 L 111/51 L 100/55 L Pulse Oximetry 93 Oxygen Delivery Method Room Air Oxygen Flow Rate 0 Const Orientation: alert Extrem Other: Left hip dressing minimal dry drainage. Soft calf easily wiggles toes 1+ dorsalis pedis pulse Objective Labs Result Diagrams: 09/17/19 08:04 09/17/19 04:50 Labs: Laboratory Results - last 24 hr 09/14/19 09/16/19 09/17/19 21:25 08:25 04:50 WBC 7.6 RBC 1.85 L Hgb 6.0 L* Hct 17.2 L* MCV 93.1 MCH 32.6 MCHC 35.0 RDW 11.8 Plt Count 187 Neut % (Auto) 58.5 Lymph % (Auto) 23.2 L [place] % (Auto) 10.1 Eos % (Auto) 7.6 H Baso % (Auto) 0.6 Neut # (Auto) 4400 Lymph # (Auto) 1800 [place] # (Auto) 800 Eos # (Auto) 600 H Baso # (Auto) 0 Sodium Potassium Chloride Carbon Dioxide BUN Creatinine Estimated GFR BUN/Creatinine Ratio Glucose Calcium Magnesium COVID-19 PCR Not detected Blood Type B Positive Antibody Screen Negative Crossmatch See Detail 09/17/19 09/17/19 04:50 08:04 WBC RBC Hgb 6.1 L* Hct 17.6 L* MCV MCH MCHC RDW Plt Count Neut % (Auto) Lymph % (Auto) [place] % (Auto) Eos % (Auto) Baso % (Auto) Neut # (Auto) Lymph # (Auto) [place] # (Auto) Eos # (Auto) Baso # (Auto) Sodium 127 L Potassium 3.3 L Chloride 98 Carbon Dioxide 28 BUN 18 H Creatinine 0.59 Estimated GFR > 60.0 BUN/Creatinine Ratio 30.5 H Glucose 106 Calcium 7.4 L Magnesium 2.0 COVID-19 PCR Blood Type Antibody Screen Crossmatch Assessment & Plan Post-op Postoperative Procedures: Procedures Operation Date: 09/15/19 17:00 Actual Procedures Side Surgeon p Intramedullary Nailing left intertrochanteric fracture Left Zelda Lea MD She is getting transfused for acute blood loss anemia. Hold Lovenox today. Plan for discharge to [facility] when medically stable. Quality VTE Deep Vein Thrombosis/Pulmonary Embolism Present on Admission: No
--- NOTE | 2019-09-17 11:06 | PT.IPTN ---
Current Diagnoses Acute posthemorrhagic anemia (09/14/19) Age-related osteoporosis with current pathological fracture, unspecified femur, initial encounter for fracture (09/14/19) Displaced intertrochanteric fracture of left femur, initial encounter for closed fracture (09/14/19) Surgery Performed Operation Date: 09/15/19 17:00 Actual Procedures p Intramedullary Nailing left intertrochanteric fracture(Left) - Zelda Lea MD Physical Therapy Treatment Note M2 PT-IP Current Condition Start: 09/16/19 11:12 Freq: NEEDED Status: Active Protocol: Document 09/16/19 11:12 [facility] (Rec: 09/16/19 12:14 [facility] [id number]) Physical Therapy Current Condition Current Condition Evaluation Date 09/16/19 Treatment Diagnosis left intertrochanteric femur fracture s/p intermedullary nail fixation Onset Date 09/14/19 Precautions Other Precautions WBAT left LE Weight Bearing Status Weight Bearing Status Weight Bear as Tolerated M3 PT-IP Subjective Start: 09/16/19 11:12 Freq: NEEDED Status: Active Protocol: Document 09/17/19 10:43 [facility] (Rec: 09/17/19 11:06 [facility] [id number]) Subjective Physical Therapy Visit Type Type Treatment Note Visit Start Time 09:45 Visit Stop Time 10:35 Total Visit Minutes 50 Notes post op day 2, pt sitting up in bed, premedicated prior to treatment, has blood transfusion going but PT was okayed to treat during transfusion. She was given both muscle relaxors and pain meds prior to treatment as shehad c/o some muscle spasms yesterday. Pt has had 2 Covid 19 tests and both were negative Physical Therapy Visit Comments Patient Comments Pt is alert but a little more sleepy today and laying in bed with head of bed elevated. She agrees to PT. She reports no pain at rest this am. Patient Goals The patient would like to see her sons Therapy Pain Assessment Pain When Pain Assessed At Rest Pain Present Pain Present Denied Pain M4 PT-IP Mobility and Gait Start: 09/16/19 11:12 Freq: NEEDED Status: Active Protocol: Document 09/17/19 10:45 [facility] (Rec: 09/17/19 14:19 [facility] [id number]) PT-Bed Mobility Assessment Supine to Sit Supine to Sit Total Assistance,2 Person Assistance,Head of Bed Elevated Scooting Scooting to Edge of Bed Dependent Scooting Up and Down in Bed Dependent PT-Transfer Assessment Sit to and From Stand Sit to and from Stand Maximum Assistance,2 Person Assistance Equipment Transfer Assistive Device Gait Belt,Front Wheeled Walker Orthotic/Prosthetic Devices or Brace: No Transfers Transfer Destination Chair Comments Mobility Comments Pt was co treated with OT this AM. She did much better overall with ability to bear weight through her L LE. Supine to sit Max 2, sit - stand with fww Max x 2, transfer to bedside chair Max x 2. Verbal cueing was needed for foot placement with walker and left LE assist was done to help lower pt to sitting. M5 PT-IP Objective Assessments Start: 09/16/19 11:12 Freq: NEEDED Status: Active Protocol: Document 09/17/19 14:05 [facility] (Rec: 09/17/19 14:08 [facility] [id number]) Orientation Orientation/Cognition Level of Alertness Alert Other Assessments Other Other Assessments pt doing better overall with mobility, mod A x 2 for transfers. Pt requires assistance with straightening left LE to return to sitting at bed side. She was dependent with bed mobility due to fatigue, she did bend her left knee to 20 degrees activily when moving in bed. She would benefit from continued PT for strengthening , transfer training, bed mobility, and gait training. M6 PT-IP Treatment Start: 09/16/19 11:12 Freq: NEEDED Status: Active Protocol: Document 09/17/19 14:01 [facility] (Rec: 09/17/19 14:05 [facility] [id number]) Physical Therapy Treatment Exercises Knee ROM Measurement 20 degrees AROM left knee Education Education Provided Weight Bearing Status,Post-Op Packet,Safety Equipment Issued Equipment Type and Company FWW and gait belt were used for transfer Other Treatments Other Treatment Performed transfer training and WB through LE to return to bed M7 PT-IP Assessment and Plan Start: 09/16/19 11:12 Freq: NEEDED Status: Active Protocol: Document 09/17/19 14:01 [facility] (Rec: 09/17/19 14:05 [facility] [id number]) PT Summary Assessment and Plan Potential Rehabilitation Potential Good Summary Impairments Pain,ROM,Strength,Balance, Cognition,Bed Mobility, Transfers,Gait,Activity Tolerance Assessment Summary 79 y/o female admitted 09/14/19 following a GLF suffering a left intertrochanteric hip fracture. She is day 2 post op intermedullary nail of the left hip. pt had much better pain control today and blood pressure remained stable throughout treatment. Pt's hip exercises were reviewed with her and she was able to participate in all of her exercises taking breaks in between. Her knee flexion was improved to 60 degrees today PROM. Bed mobility was Max A x 2 as she was able to move her leg a little to assist. She was scooted to the left side of bed with max A x 2, transfer to sitting at edge of bed Max A x 2, transfers to stand was max A x 2 and pt transfered to bed side chair dony small steps with verbal cuing mod A x 2. Overall much better today for mobility and improved pain control. Goals Bed Mobility Goal Moderate Assistance Transfer Goal Moderate Assistance Gait Goal Moderate Assistance Gait Distance 20 feet Days to Meet Goals 5 Frequency of Treatment Frequency Of Treatment Twice a Day Treatment Plan Physical Therapy Treatment Plan Bed Mobility Training,Transfer Training,Gait Training, Therapeutic Exercise,Post Op Education,Hot or Cold Pack Discharge Recommendations PT Discharge Recommendations SNF Rehab Other Discharge Recommendations pt will be going to a SNF in [place] closer to where her boys live Transportation Needs at Discharge Wheelchair/Cabulance,Stretcher /Ambulance
--- NOTE | 2019-09-17 11:07 | PT.IPTN ---
Current Diagnoses Acute posthemorrhagic anemia (09/14/19) Age-related osteoporosis with current pathological fracture, unspecified femur, initial encounter for fracture (09/14/19) Displaced intertrochanteric fracture of left femur, initial encounter for closed fracture (09/14/19) Surgery Performed Operation Date: 09/15/19 17:00 Actual Procedures p Intramedullary Nailing left intertrochanteric fracture(Left) - Zelda Lea MD Physical Therapy Treatment Note M2 PT-IP Current Condition Start: 09/16/19 11:12 Freq: NEEDED Status: Active Protocol: Document 09/16/19 11:12 [facility] (Rec: 09/16/19 12:14 [facility] [id number]) Physical Therapy Current Condition Current Condition Evaluation Date 09/16/19 Treatment Diagnosis left intertrochanteric femur fracture s/p intermedullary nail fixation Onset Date 09/14/19 Precautions Other Precautions WBAT left LE Weight Bearing Status Weight Bearing Status Weight Bear as Tolerated M3 PT-IP Subjective Start: 09/16/19 11:12 Freq: NEEDED Status: Active Protocol: Document 09/17/19 10:43 [facility] (Rec: 09/17/19 11:06 [facility] [id number]) Subjective Physical Therapy Visit Type Type Treatment Note Visit Start Time 09:45 Visit Stop Time 10:35 Total Visit Minutes 50 Notes post op day 2, pt sitting up in bed, premedicated prior to treatment, has blood transfusion going but PT was okayed to treat during transfusion. She was given both muscle relaxors and pain meds prior to treatment as shehad c/o some muscle spasms yesterday. Pt has had 2 Covid 19 tests and both were negative Physical Therapy Visit Comments Patient Comments Pt is alert but a little more sleepy today and laying in bed with head of bed elevated. She agrees to PT. She reports no pain at rest this am. Patient Goals The patient would like to see her sons Therapy Pain Assessment Pain When Pain Assessed At Rest Pain Present Pain Present Denied Pain M4 PT-IP Mobility and Gait Start: 09/16/19 11:12 Freq: NEEDED Status: Active Protocol: Document 09/16/19 11:12 [facility] (Rec: 09/16/19 12:14 [facility] [id number]) PT-Bed Mobility Assessment Supine to Sit Supine to Sit Total Assistance,2 Person Assistance,Head of Bed Elevated Sit to Supine Sit to Supine Total Assistance,2 Person Assistance Scooting Scooting to Edge of Bed Dependent Scooting Up and Down in Bed Dependent PT-Transfer Assessment Sit to and From Stand Sit to and from Stand Maximum Assistance,2 Person Assistance Equipment Transfer Assistive Device Gait Belt,Front Wheeled Walker Orthotic/Prosthetic Devices or Brace: No Transfers Transfer Destination Chair Comments Mobility Comments PT AND OT CO TREATED: pt was unable to assist with her bed mobility and transfer to sitting. She was able to actively pump her ankles, perform a quad squeeze on the left and assist with a small ROM of knee flexion. Once in a seated position at the edge of the bed she used the grap bar on the bed to help support her. She sat for over 5 minutes and particitpated in combing her hair, talking on the phone, and drinking some water. Her blood pressure at this point had dropped to 90/ 53 in sitting. She was max A x 2 for sit-stand with fww. She was able to get into a full standing position after 3 attempts of sit-stand. The goal was to transfer her to the bedside chair but at this point her blood pressure dropped 89/51 and she was yelling in pain so we decided to have her sit back down. As soon as we sat her back down pain levels decreased. She did not assist with transfer back to supine and for positioning her in bed. Blood pressure came back up to 105/ 60 once positioned in bed. Pt was given ice over the left hip to help with pain control and reducing inflammation. PT-Balance Assessment Sitting Balance and Reactions Static Sitting Balance Ability Fair Dynamic Sitting Balance Ability Fair Standing Balance and Reactions Static Standing Balance Ability Poor Dynamic Standing Balance Ability Poor M5 PT-IP Objective Assessments Start: 09/16/19 11:12 Freq: NEEDED Status: Active Protocol: Document 09/16/19 11:12 [facility] (Rec: 09/16/19 12:14 [facility] [id number]) Orientation Orientation/Cognition Level of Alertness Confusional State Orientation Name,Year Memory Description Short Term Impaired Comments per patients son she has shown symptoms of early dementia. OT performed a Slums asssement with her with was a 16/30 which implies Dementia Gross Range of Motion Upper Extremity ROM Assessment Within Functional Limits Lower Extremity ROM Assessment Left Impaired Impairments able to passively flex left knee to 40 degrees, pt able to actively flex knee 10 degrees PROM abduction to 20 degrees Left LE Strength Upper Extremity Strength Assessment Within Functional Limits Lower Extremity Strength Assessment Left Impaired Comments Strength Comments able to actively perform ankle pumps, quad sets, gluteal squeeze left LE Coordination Assessment Gross Coordination Gross Coordination WNL Sensation Assessment Sensation Gross Sensation WNL Muscle Tone Muscle Tone WNL Yes Other Assessments Other Other Assessments 79 yo female admitted 09/14/19 following a GLF suffering a left intertrochanteric hip fracture. She is day 1 post op intermedullary nail of the left hip. The patient had lived at home with her and was independent with ADL' s expect driving and cooking. She states that her wanted to do this for her. I am not sure if this was because of early dementia or not. Her 2 weeks ago at home from a PR . The patient has 2 sons who live in [place]. She was co treated with OT today for treatment. She was dependant for transfers to the edge of the bed for dangling. At this point she was able to balance her self and used the bed grab bar for stability. She was Max A x 2 for sit-stand with fww. Her blood pressure dropped in standing and her pain levels increased. At this point it was decided to have her sit back down and she was transferred back to supine in bed. Her head was elevated and she was given water. The pain levels seemed to calm down once movement of her hip stopped. At this point she was given ice to her left hip and OT went ahead with the Slums examination. The patient has hearing aides however the batteries were so she would benefit from having one of her son's bring in batteries. M6 PT-IP Treatment Start: 09/16/19 11:12 Freq: NEEDED Status: Active Protocol: Document 09/17/19 10:43 [facility] (Rec: 09/17/19 11:06 [facility] [id number]) Physical Therapy Treatment Exercises Exercises Ankle Pumps,Gluteal Sets,Quad Sets,Heel Slides,Supine Hip Abduction Knee ROM Measurement 60 degrees PROM 10 degrees AROM Left LE Education Education Provided Weight Bearing Status,Post-Op Packet,Safety Equipment Issued Equipment Type and Company FWW and gait belt were used for transfer Other Treatments Other Treatment Performed CO treat with OT this am, pt was educated on WBAT through the left LE, pt was instructed in post op hip exercises and pt was able to help participate in these. Transfer training was performed to the left side including scooting max A x 2, supine to sit at edge of bed Max A x 2, pt sat at the edge of bed x 5 minutes. She was able to hold her self up using grab bar on the bed. She performed ankle pumps B and TKE on the right. Transfer from sit-stand was Max A x 2. Once standing pt was able to WBAT left LE. With verbal cueing she took small steps to the right to sit in the bed side chair. Transfer was Mod A x 2 with verbal cues throughout. Once she was seated in a comfortable position a roll was placed between her legs. Her left LE tends to roll into IR. Ice was placed on her left hip and she was reclined comfortable. OT then worked with the patient on grooming. Nursing was present to check on IV's at the end of treatment. M7 PT-IP Assessment and Plan Start: 09/16/19 11:12 Freq: NEEDED Status: Active Protocol: Document 09/17/19 10:43 [facility] (Rec: 09/17/19 11:06 [facility] [id number]) PT Summary Assessment and Plan Potential Rehabilitation Potential Good Status of Condition at Evaluation Evolving Summary Impairments Pain,ROM,Strength,Balance, Cognition,Bed Mobility, Transfers,Gait,Activity Tolerance Assessment Summary 79 y/o female admitted 09/14/19 following a GLF suffering a left intertrochanteric hip fracture. She is day 2 post op intermedullary nail of the left hip. pt had much better pain control today and blood pressure remained stable throughout treatment. Pt's hip exercises were reviewed with her and she was able to participate in all of her exercises taking breaks in between. Her knee flexion was improved to 60 degrees today PROM. Bed mobility was Max A x 2 as she was able to move her leg a little to assist. She was scooted to the left side of bed with max A x 2, transfer to sitting at edge of bed Max A x 2, transfers to stand was max A x 2 and pt transferred to bed side chair taking small steps with verbal cuing mod A x 2. Overall much better today for mobility and improved pain control. Goals Bed Mobility Goal Moderate Assistance Transfer Goal Moderate Assistance Gait Goal Moderate Assistance Gait Distance 20 feet Days to Meet Goals 5 Frequency of Treatment Frequency Of Treatment Twice a Day Treatment Plan Physical Therapy Treatment Plan Bed Mobility Training,Transfer Training,Gait Training, Therapeutic Exercise,Post Op Education,Hot or Cold Pack Recommendations To Nursing Amount of Assist Needed 2 Person Assist Discharge Recommendations PT Discharge Recommendations SNF Rehab Other Discharge Recommendations pt will be going to a SNF in [place] closer to where her boys live Transportation Needs at Discharge Stretcher/Ambulance
--- NOTE | 2019-09-17 11:17 | OT.IP.TRT ---
Current Diagnoses Acute posthemorrhagic anemia (09/14/19) Age-related osteoporosis with current pathological fracture, unspecified femur, initial encounter for fracture (09/14/19) Displaced intertrochanteric fracture of left femur, initial encounter for closed fracture (09/14/19) Surgery Performed Operation Date: 09/15/19 17:00 Actual Procedures p Intramedullary Nailing left intertrochanteric fracture(Left) - Zelda Lea MD Occupational Therapy Treatment Note M2 OT-IP Current Condition Start: 09/16/19 11:33 Freq: Status: Active Protocol: Document 09/16/19 11:34 [facility] (Rec: 09/16/19 12:14 [facility] [id number]) Occupational Therapy Current Condition Current Condition Evaluation Date 09/16/19 Treatment Diagnosis S/P Intramedullary nail left intertrochanteric hip fx. Diagnosis Onset Date 09/14/19 Weight Bearing Status Weight Bearing Status Weight Bear as Tolerated M3 OT- IP Subjective and Pain Start: 09/16/19 11:33 Freq: Status: Active Protocol: Document 09/17/19 10:59 [facility] (Rec: 09/17/19 11:17 [facility] [id number]) OT- Subjective Occupational Therapy Visit Type Type Treatment Note Visit Start Time 09:50 Visit Stop Time 10:49 Total Visit Minutes 59 Occupational Therapy Visit Comments Patient Comments Pt drowsy, cooperative and willing to try to get up. Patient/Caregiver Goals To get better. OT Pain Assessment Pain When Pain Assessed At Rest Pain Present Pain Present Denied Pain M4 OT- IP ADL's Start: 09/16/19 11:33 Freq: Status: Active Protocol: Document 09/17/19 10:59 [facility] (Rec: 09/17/19 11:17 [facility] [id number]) OT [id number] Comments OT Self-Feeding Comments Pt able to drink from the water bottle on her own. OT ADL-Grooming General Evaluation Grooming Ability Minimal Assistance Comments OT Grooming Comments Melissa for completeness for her hair while sitting from the recliner. Pt able to wash her face and hands after set-up of wash cloth. OT ADL-Oral Care General Eval Oral Care Ability Standby Assistance Comments Oral Care Comments Pt thinking she had her electric toothbrush in her hand and needed reminders to move her arm/hand while brushing her teeth with the manual toothbrush. OT ADL-Dressing Comments OT Dressing Comments Not performed, but dependent for LB dressing needs at this time. OT ADL-Toileting Comments OT Toileting Comments [place] in. OT ADL-Bathing Comments OT Bathing Comments Not performed. M5 OT- IP IADL's Start: 09/16/19 11:33 Freq: Status: Active Protocol: Document 09/16/19 11:34 [facility] (Rec: 09/16/19 12:14 [facility] [id number]) OT-Instrumental Activities of Daily Living Home Safety Awareness Awareness of Need for Assistance at Home Decreased Awareness Ability to Problem Solve Emergency Unable to Problem Solve Situations Medication Management Medication Management Caregiver Administers Money Management Money Management Caregiver Provides Assistance Meal Preparation Meal Preparation Caregiver Provides Assist Padder Padder Caregiver Provides Assist Driving Driving Caregiver Provides Assist M6 OT- IP Functional Cognition Start: 09/16/19 11:33 Freq: Status: Active Protocol: Document 09/17/19 10:59 [facility] (Rec: 09/17/19 11:17 [facility] [id number]) Cognitive Factors Limiting Selfcare Function Cognitive Ability Level of Alertness Alert,Confusional State,Drowsy Patient Orientation Name Attention Span Ability Capable of Focused Attention, Unable to Sustain Attention Ability to Follow Commands Able to Follow One Step Commands Memory Description Short Term Impaired,Working Impaired Problem Solving Ability Unable to Identify Errors, Needs Assist to Identify Solutions Executive Function Ability Unable to Filter Distractions, Unable to Make Plans,Unable to Organize Plans,Unable to Remember Details Cognitive Comments Cognitive Assessment Comments Pt able to states her wants and needs today better. Pt able to follow simple one step commands during bed mobilty, transfer and grooming needs. Pt still needing step by step commands for overall safety awareness for hand placement and cues to move her feet during the transfer. Pt not able to recall how to properly put in the new batteries to her hearing aids. OT- Vision and Hearing OT- Hearing Assessment OT- Hearing Assessment Use of Hearing Aids OT- Vision Assessment Visual Acuity Glasses All The Time M7 OT- IP Mobility and Balance Start: 09/16/19 11:33 Freq: Status: Active Protocol: Document 09/17/19 10:59 [facility] (Rec: 09/17/19 11:17 [facility] [id number]) OT- Bed Mobility Assessment Supine to Sit Supine to Sit Assist Maximum Assistance,2 Person Assistance,Head of Bed Elevated,Bedrails Scooting Scooting to Edge of Bed Maximum Assistance,2 Person Assistance OT-Transfer Assessment Sit to and From Stand Sit to and from Stand Maximum Assistance,2 Person Assistance Transfers Transfer Ability Moderate Assistance,2 Person Assistance Technique Transfer Destination Bed,Chair Transfer Technique Stand Step Pivot Devices Transfer Assistive Devices Gait Belt,Front Wheeled Walker Comments Mobility Comments Pt able to assist a little more from supine to sit, now needing MAX A X 2, MODA x2 to stand with FWW. Pt needing assist for balance, tactile and vc to move her feet. At this time pt just able to slide her feet from side to side a little at a time and heavy use of her arms on the walker while transferring to the right. OT- Balance Assessment Sitting Balance and Reactions Static Sitting Balance Ability Poor Standing Balance and Reactions Static Standing Balance Ability Poor Comments Other Balance Tests/Deviations/Treatment Pt a little for anxious today : while sitting on the edge of the bed and she was feeling that she was going to fall off the bed. Pt able to sit with MELISSA to SBA and use of bed rail to assist. M8 OT- IP Objective Assessments Start: 09/16/19 11:33 Freq: Status: Active Protocol: Document 09/16/19 11:34 [facility] (Rec: 09/16/19 12:14 [id number] Gross Range of Motion Upper Extremity Range of Motion Assessment Within Functional Limits OT Strength Upper Extremity Strength Assessment Within Functional Limits OT-Muscle Tone Assessment Muscle Tone WNL Yes M9 OT- IP Assessment and Plan Start: 09/16/19 11:33 Freq: Status: Active Protocol: Document 09/17/19 10:59 [facility] (Rec: 09/17/19 11:17 [id number] OT Summary Assessment and Plan Potential Rehabilitation Potential Good Analytic Complexity at Evaluation Low Summary OT Impairments Pain,Balance,Functional Cognition,Functional Mobility, Grooming,Dressing,Toileting, Bathing,Toilet Transfers, Shower Transfers,Activity Tolerance Progress Towards Goals Slow Progress due to Medical Issues,Slow Progress due to Activity Tolerance,Slow Progress due to Cognition Assessment Summary Pt getting blood due to low Hgb and Hct levels. Pt able to assist more for bed mobility and able to tolerate transfer today with FWW. pt able to slide her feet side to side at this time but not able to roll picker her feet due to pain. Pt drowsy and a bit confused , partly attirbuted to her decreased short term memory and possible sensitivity to pain medications. OT goals upgrades as doing better today with mobility needs. Pt will benefit from skilled rehab medically stable. Goals Self-Feeding Goal Independent Grooming Goal Standby Assistance Dressing Goal Moderate Assistance Toileting Goal Minimal Assistance Bathing Goal Moderate Assistance Toilet Transfer Goal Minimal Assistance Shower Transfer Goal Moderate Assistance Days to Meet Goals 12 Frequency of Treatment Frequency Of Treatment Once a Day Treatment Plan OT Treatment Plan ADL Training,Functional Cognition Training,Functional Mobility,Patient/Family Education,Discharge Planning Other Treatment Recommendations and Next Transfer to [facility] with MAX x Treatment Focus 1and FWW. Initiate education of LB dressing equipment. Discharge Recommendations OT Discharge Recommendations SNF Rehab Home Equipment Needs Defer to SNF Transportation Needs at Discharge Wheelchair/Cabulance
[2019-09-17 11:28] LABS: HEMOLYSIS < 15 (0-50); Iron 19 ug/dL (37-170)
[2019-09-17 11:39] LABS: Percent Iron Saturation 9 % (15-50); Total Iron Binding Capacity 213 ug/dL (265-497); Transferrin 148 mg/dL (206-381)
--- NOTE | 2019-09-17 12:44 | OT.IP.TRT ---
Current Diagnoses Acute posthemorrhagic anemia (09/14/19) Age-related osteoporosis with current pathological fracture, unspecified femur, initial encounter for fracture (09/14/19) Displaced intertrochanteric fracture of left femur, initial encounter for closed fracture (09/14/19) Surgery Performed Operation Date: 09/15/19 17:00 Actual Procedures p Intramedullary Nailing left intertrochanteric fracture(Left) - Zelda Lea MD Occupational Therapy Treatment Note M2 OT-IP Current Condition Start: 09/16/19 11:33 Freq: Status: Active Protocol: Document 09/16/19 11:34 [facility] (Rec: 09/16/19 12:14 [facility] [id number]) Occupational Therapy Current Condition Current Condition Evaluation Date 09/16/19 Treatment Diagnosis S/P Intramedullary nail left intertrochanteric hip fx. Diagnosis Onset Date 09/14/19 Weight Bearing Status Weight Bearing Status Weight Bear as Tolerated M3 OT- IP Subjective and Pain Start: 09/16/19 11:33 Freq: Status: Active Protocol: Document 09/17/19 10:59 [facility] (Rec: 09/17/19 11:17 [facility] [id number]) OT- Subjective Occupational Therapy Visit Type Type Treatment Note Visit Start Time 09:50 Visit Stop Time 10:49 Total Visit Minutes 59 Occupational Therapy Visit Comments Patient Comments Pt drowsy, cooperative and willing to try to get up. Patient/Caregiver Goals To get better. OT Pain Assessment Pain When Pain Assessed At Rest Pain Present Pain Present Denied Pain M4 OT- IP ADL's Start: 09/16/19 11:33 Freq: Status: Active Protocol: Document 09/17/19 10:59 [facility] (Rec: 09/17/19 11:17 [facility] [id number]) OT [id number] Comments OT Self-Feeding Comments Pt able to drink from the water bottle on her own. OT ADL-Grooming General Evaluation Grooming Ability Minimal Assistance Comments OT Grooming Comments Melissa for completeness for her hair while sitting from the recliner. Pt able to wash her face and hands after set-up of wash cloth. OT ADL-Oral Care General Eval Oral Care Ability Standby Assistance Comments Oral Care Comments Pt thinking she had her electric toothbrush in her hand and needed reminders to move her arm/hand while brushing her teeth with the manual toothbrush. OT ADL-Dressing Comments OT Dressing Comments Not performed, but dependent for LB dressing needs at this time. OT ADL-Toileting Comments OT Toileting Comments [place]millan in. OT ADL-Bathing Comments OT Bathing Comments Not performed. M5 OT- IP IADL's Start: 09/16/19 11:33 Freq: Status: Active Protocol: Document 09/16/19 11:34 [facility] (Rec: 09/16/19 12:14 [facility] [id number]) OT-Instrumental Activities of Daily Living Home Safety Awareness Awareness of Need for Assistance at Home Decreased Awareness Ability to Problem Solve Emergency Unable to Problem Solve Situations Medication Management Medication Management Caregiver Administers Money Management Money Management Caregiver Provides Assistance Meal Preparation Meal Preparation Caregiver Provides Assist Animal Skinner Animal Skinner Caregiver Provides Assist Driving Driving Caregiver Provides Assist M6 OT- IP Functional Cognition Start: 09/16/19 11:33 Freq: Status: Active Protocol: Document 09/17/19 10:59 [facility] (Rec: 09/17/19 11:17 [facility] [id number]) Cognitive Factors Limiting Selfcare Function Cognitive Ability Level of Alertness Alert,Confusional State,Drowsy Patient Orientation Name Attention Span Ability Capable of Focused Attention, Unable to Sustain Attention Ability to Follow Commands Able to Follow One Step Commands Memory Description Short Term Impaired,Working Impaired Problem Solving Ability Unable to Identify Errors, Needs Assist to Identify Solutions Executive Function Ability Unable to Filter Distractions, Unable to Make Plans,Unable to Organize Plans,Unable to Remember Details Cognitive Comments Cognitive Assessment Comments Pt able to states her wants and needs today better. Pt able to follow simple one step commands during bed mobility, transfer and grooming needs. Pt still needing step by step commands for overall safety awareness for hand placement and cues to move her feet during the transfer. OT- Vision and Hearing OT- Hearing Assessment OT- Hearing Assessment Use of Hearing Aids OT- Vision Assessment Visual Acuity Glasses All The Time M7 OT- IP Mobility and Balance Start: 09/16/19 11:33 Freq: Status: Active Protocol: Document 09/17/19 10:59 [facility] (Rec: 09/17/19 11:17 [facility] [id number]) OT- Bed Mobility Assessment Supine to Sit Supine to Sit Assist Maximum Assistance,2 Person Assistance,Head of Bed Elevated,Bedrails Scooting Scooting to Edge of Bed Maximum Assistance,2 Person Assistance OT-Transfer Assessment Sit to and From Stand Sit to and from Stand Maximum Assistance,2 Person Assistance Transfers Transfer Ability Moderate Assistance,2 Person Assistance Technique Transfer Destination Bed,Chair Transfer Technique Stand Step Pivot Devices Transfer Assistive Devices Gait Belt,Front Wheeled Walker Comments Mobility Comments Pt able to assist a little more from supine to sit, now needing MAX A X 2, MODA x2 to stand with FWW. Pt needing assist for balance, tactile and vc to move her feet. At this time pt just able to slide her feet from side to side a little at a time and heavy use of her arms on the walker while transferring to the right. OT- Balance Assessment Sitting Balance and Reactions Static Sitting Balance Ability Poor Standing Balance and Reactions Static Standing Balance Ability Poor Comments Other Balance Tests/Deviations/Treatment Pt a little for anxious today : while sitting on the edge of the bed and she was feeling that she was going to fall off the bed. Pt able to sit with MELISSA to SBA and use of bed rail to assist. M8 OT- IP Objective Assessments Start: 09/16/19 11:33 Freq: Status: Active Protocol: Document 09/16/19 11:34 [facility] (Rec: 09/16/19 12:14 [id number] Gross Range of Motion Upper Extremity Range of Motion Assessment Within Functional Limits OT Strength Upper Extremity Strength Assessment Within Functional Limits OT-Muscle Tone Assessment Muscle Tone WNL Yes M9 OT- IP Assessment and Plan Start: 09/16/19 11:33 Freq: Status: Active Protocol: Document 09/17/19 10:59 [facility] (Rec: 09/17/19 11:17 [id number] OT Summary Assessment and Plan Potential Rehabilitation Potential Good Analytic Complexity at Evaluation Low Summary OT Impairments Pain,Balance,Functional Cognition,Functional Mobility, Grooming,Dressing,Toileting, Bathing,Toilet Transfers, Shower Transfers,Activity Tolerance Progress Towards Goals Slow Progress due to Medical Issues,Slow Progress due to Activity Tolerance,Slow Progress due to Cognition Assessment Summary Pt getting blood due to low Hgb and Hct levels. Pt able to assist more for bed mobility and able to tolerate transfer today with FWW. pt able to slide her feet side to side at this time but not able to poultry picking machine tender her feet due to pain. Pt drowsy and a bit confused , partly attributed to her decreased short term memory and possible sensitivity to pain medications. OT goals upgrades as doing better today with mobility needs. Pt will benefit from skilled rehab medically stable. Goals Self-Feeding Goal Independent Grooming Goal Standby Assistance Dressing Goal Moderate Assistance Toileting Goal Minimal Assistance Bathing Goal Moderate Assistance Toilet Transfer Goal Minimal Assistance Shower Transfer Goal Moderate Assistance Days to Meet Goals 12 Frequency of Treatment Frequency Of Treatment Once a Day Treatment Plan OT Treatment Plan ADL Training,Functional Cognition Training,Functional Mobility,Patient/Family Education,Discharge Planning Other Treatment Recommendations and Next Transfer to [facility] with MAX x Treatment Focus 1and FWW. Initiate education of LB dressing equipment. Discharge Recommendations OT Discharge Recommendations SNF Rehab Home Equipment Needs Defer to SNF Transportation Needs at Discharge Stretcher
--- NOTE | 2019-09-17 13:08 | DIET.PN ---
Dietary Progress Note RD f/u to give pt handout on high kcal/high pro nutrition therapy. Pt continues to endorse low appetite. Her RN reports pt has low fluid intake c concentrated urine. Pt a fan of chocolate, so I made her chocolate Ensure Enlive smoothie c a banana and vanilla yogurt to try to spur POs and hydration at lunch. Will continue tid if pt accepting. 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 Interventions: 1. Educated on importance of energy/protein needs post surgery for recovery. Patient with good understanding. 2. Recommended ONS enlive BID for increased protein and nutrient needs including Na, Ca, Mg. Pt agreeable. Diet Order: General EER: 1250 kcal @ 30cal/kg; 53-60g pro @ 1.3-1.5g/kg PCM/fracture Monitoring/Evaluations: weight, PO's, ONS acceptance. Will provided face to face education when Covid-19 negative.
[2019-09-17 13:46] LABS: Folate 8.5 ng/mL (2.76-20.0); Vitamin B12 805 pg/mL (239-931)
[2019-09-17] MEDS: IRON SUCROSE 200 MG in SODIUM CHLORIDE 0.9% 100 ML 110 ML IV (13:53)
--- NOTE | 2019-09-17 14:05 | OT.IP.TRT ---
Current Diagnoses Acute posthemorrhagic anemia (09/14/19) Age-related osteoporosis with current pathological fracture, unspecified femur, initial encounter for fracture (09/14/19) Displaced intertrochanteric fracture of left femur, initial encounter for closed fracture (09/14/19) Surgery Performed Operation Date: 09/15/19 17:00 Actual Procedures p Intramedullary Nailing left intertrochanteric fracture(Left) - Zelda Lea MD Occupational Therapy Treatment Note M2 OT-IP Current Condition Start: 09/16/19 11:33 Freq: Status: Active Protocol: Document 09/16/19 11:34 [facility] (Rec: 09/16/19 12:14 [facility] [id number]) Occupational Therapy Current Condition Current Condition Evaluation Date 09/16/19 Treatment Diagnosis S/P Intramedullary nail left intertrochanteric hip fx. Diagnosis Onset Date 09/14/19 Weight Bearing Status Weight Bearing Status Weight Bear as Tolerated M3 OT- IP Subjective and Pain Start: 09/16/19 11:33 Freq: Status: Active Protocol: Document 09/17/19 13:53 [facility] (Rec: 09/17/19 14:04 [facility] [id number]) OT- Subjective Occupational Therapy Visit Type Type Treatment Note Visit Start Time 13:25 Visit Stop Time 14:54 Total Visit Minutes 29 Occupational Therapy Visit Comments Patient Comments Pt agreeable to get back to bed. Saw pt with PT to assist due to pt needing extensive assist for transfer and mobility needs. Patient/Caregiver Goals To get better. OT Pain Assessment Pain When Pain Assessed At Rest Pain Present Pain Present Pain Reported Location left hip Intensity 8 Scale Used Numeric (1 - 10) M4 OT- IP ADL's Start: 09/16/19 11:33 Freq: Status: Active Protocol: Document 09/17/19 10:59 [facility] (Rec: 09/17/19 11:17 [facility] [id number]) OT [id number] Comments OT Self-Feeding Comments Pt able to drink from the water bottle on her own. OT ADL-Grooming General Evaluation Grooming Ability Minimal Assistance Comments OT Grooming Comments Melissa for completeness for her hair while sitting from the recliner. Pt able to wash her face and hands after set-up of wash cloth. OT ADL-Oral Care General Eval Oral Care Ability Standby Assistance Comments Oral Care Comments Pt thinking she had her electric toothbrush in her hand and needed reminders to move her arm/hand while brushing her teeth with the manual toothbrush. OT ADL-Dressing Comments OT Dressing Comments Not performed, but dependent for LB dressing needs at this time. OT ADL-Toileting Comments OT Toileting Comments [place] in. OT ADL-Bathing Comments OT Bathing Comments Not performed. M5 OT- IP IADL's Start: 09/16/19 11:33 Freq: Status: Active Protocol: Document 09/16/19 11:34 [facility] (Rec: 09/16/19 12:14 [id number] OT-Instrumental Activities of Daily Living Home Safety Awareness Awareness of Need for Assistance at Home Decreased Awareness Ability to Problem Solve Emergency Unable to Problem Solve Situations Medication Management Medication Management Caregiver Administers Money Management Money Management Caregiver Provides Assistance Meal Preparation Meal Preparation Caregiver Provides Assist Corporate Attorney Corporate Attorney Caregiver Provides Assist Driving Driving Caregiver Provides Assist M6 OT- IP Functional Cognition Start: 09/16/19 11:33 Freq: Status: Active Protocol: Document 09/17/19 13:53 [facility] (Rec: 09/17/19 14:04 [id number] Cognitive Factors Limiting Selfcare Function Cognitive Ability Level of Alertness Alert Patient Orientation Name Attention Span Ability Capable of Focused Attention, Unable to Sustain Attention Ability to Follow Commands Able to Follow One Step Commands Memory Description Short Term Impaired,Working Impaired Cognitive Comments Cognitive Assessment Comments Pt does not recall therapist from having the same name as her. Pt able to follow commands better for mobility needs. M7 OT- IP Mobility and Balance Start: 09/16/19 11:33 Freq: Status: Active Protocol: Document 09/17/19 13:53 [facility] (Rec: 09/17/19 14:04 [id number] OT- Bed Mobility Assessment Sit to Supine Sit to Supine Assist Total Assistance,2 Person Assistance OT-Transfer Assessment Sit to and From Stand Sit to and from Stand Maximum Assistance,2 Person Assistance Transfers Transfer Ability Moderate Assistance,2 Person Assistance Technique Transfer Destination Bed,Chair Transfer Technique Stand Step Pivot Devices Transfer Assistive Devices Gait Belt,Front Wheeled Walker Comments Mobility Comments Pt improved from this morning and being able to slide her feet more and more control with left foot as well to transfer back to bed. The bed was tilted at 5 degrees to increase ease to sit down to the bed. Pt still needing MAX A X 2 to help lower and assist to slide left foot forwards before sitting down to the bed. OT- Balance Assessment Sitting Balance and Reactions Static Sitting Balance Ability Fair Standing Balance and Reactions Static Standing Balance Ability Poor M8 OT- IP Objective Assessments Start: 09/16/19 11:33 Freq: Status: Active Protocol: Document 09/16/19 11:34 [facility] (Rec: 09/16/19 12:14 [facility] [id number]) OT Gross Range of Motion Upper Extremity Range of Motion Assessment Within Functional Limits OT Strength Upper Extremity Strength Assessment Within Functional Limits OT-Muscle Tone Assessment Muscle Tone WNL Yes M9 OT- IP Assessment and Plan Start: 09/16/19 11:33 Freq: Status: Active Protocol: Document 09/17/19 13:53 [facility] (Rec: 09/17/19 14:04 [facility] [id number]) OT Summary Assessment and Plan Potential Rehabilitation Potential Good Analytic Complexity at Evaluation Low Summary OT Impairments Pain,Balance,Functional Cognition,Functional Mobility, Grooming,Dressing,Toileting, Bathing,Toilet Transfers, Shower Transfers,Activity Tolerance Progress Towards Goals Progressing Toward Goals Assessment Summary Pt able to more her feet more for the transfer back to bed this afternoon. OT if appropriate to consider transfer to [facility] . Pt will benefit from skilled rehab when medically stable. Goals Self-Feeding Goal Independent Grooming Goal Standby Assistance Dressing Goal Moderate Assistance Toileting Goal Minimal Assistance Bathing Goal Moderate Assistance Toilet Transfer Goal Minimal Assistance Shower Transfer Goal Moderate Assistance Days to Meet Goals 11 Frequency of Treatment Frequency Of Treatment 1-2 a Day Treatment Plan OT Treatment Plan ADL Training,Functional Cognition Training,Functional Mobility,Patient/Family Education,Discharge Planning Other Treatment Recommendations and Next Transfer to [facility] with MAX x Treatment Focus 1and FWW. Initiate education of LB dressing equipment. Discharge Recommendations OT Discharge Recommendations SNF Rehab Home Equipment Needs Defer to SNF Transportation Needs at Discharge Wheelchair/Cabulance,Stretcher /Ambulance
--- NOTE | 2019-09-17 14:33 | PT.IPTN ---
Current Diagnoses Acute posthemorrhagic anemia (09/14/19) Age-related osteoporosis with current pathological fracture, unspecified femur, initial encounter for fracture (09/14/19) Displaced intertrochanteric fracture of left femur, initial encounter for closed fracture (09/14/19) Surgery Performed Operation Date: 09/15/19 17:00 Actual Procedures p Intramedullary Nailing left intertrochanteric fracture(Left) - Zelda Lea MD Physical Therapy Treatment Note M2 PT-IP Current Condition Start: 09/16/19 11:12 Freq: NEEDED Status: Active Protocol: Document 09/16/19 11:12 [facility] (Rec: 09/16/19 12:14 [facility] [id number]) Physical Therapy Current Condition Current Condition Evaluation Date 09/16/19 Treatment Diagnosis left intertrochanteric femur fracture s/p intermedullary nail fixation Onset Date 09/14/19 Precautions Other Precautions WBAT left LE Weight Bearing Status Weight Bearing Status Weight Bear as Tolerated M3 PT-IP Subjective Start: 09/16/19 11:12 Freq: NEEDED Status: Active Protocol: Document 09/17/19 14:01 [facility] (Rec: 09/17/19 14:05 [facility] [id number]) Subjective Physical Therapy Visit Type Type Treatment Note Visit Start Time 13:25 Visit Stop Time 13:54 Total Visit Minutes 29 Notes pt sat up in bedside chair from 10:30 am - 13:25 pm Physical Therapy Visit Comments Patient Comments pt is alert, she finished her protein shake and agrees to return to bed at this time. No pain reported at rest. Therapy Pain Assessment Pain When Pain Assessed During Mobility Pain Present Pain Present Pain Reported Location left hip Intensity 8 Scale Used Numeric (1 - 10) Pain Behaviors Facial Grimacing,Wincing Pain Management Techniques Apply Cold,Re-positioning, Timing of Activity with Medications M4 PT-IP Mobility and Gait Start: 09/16/19 11:12 Freq: NEEDED Status: Active Protocol: Document 09/17/19 14:01 [facility] (Rec: 09/17/19 14:31 [facility] [id number]) PT-Bed Mobility Assessment Sit to Supine Sit to Supine Total Assistance,2 Person Assistance Scooting Scooting to Edge of Bed Dependent Scooting Up and Down in Bed Dependent PT-Transfer Assessment Sit to and From Stand Sit to and from Stand Maximum Assistance,2 Person Assistance Equipment Transfer Assistive Device Gait Belt,Front Wheeled Walker Orthotic/Prosthetic Devices or Brace: No Transfers Transfer Destination Bed Transfer Ability Level of Assist Moderate Assistance,2 Person Assistance Comments Mobility Comments Pt was co treated with OT this PM. SHe sat up in the bedside chair close to 3 hours . She was a Mod A x 2 for her transfer this PM and she was able to take small steps for her transfer back to [facility]. She still required verbal cues for her transfer. She needed asssit with her left LE to sit back down to the bed. She needed assist with both LE to return to bed. Bed modility was max A as she was fatigued. M5 PT-IP Objective Assessments Start: 09/16/19 11:12 Freq: NEEDED Status: Active Protocol: Document 09/17/19 14:01 [facility] (Rec: 09/17/19 14:08 [facility] [id number]) Orientation Orientation/Cognition Level of Alertness Alert Other Assessments Other Other Assessments pt doing better overall with mobility, mod A x 2 for transfers. Pt requires assistance with straightening left LE to return to sitting at bed side. She was dependent with bed mobility due to fatigue, she did bend her left knee to 20 degrees activily when moving in bed. She would benefit from continued PT for strengthening , transfer training, bed mobility, and gait training. M6 PT-IP Treatment Start: 09/16/19 11:12 Freq: NEEDED Status: Active Protocol: Document 09/17/19 14:01 [facility] (Rec: 09/17/19 14:05 [facility] [id number]) Physical Therapy Treatment Exercises Knee ROM Measurement 20 degrees AROM left knee Education Education Provided Weight Bearing Status,Post-Op Packet,Safety Equipment Issued Equipment Type and Company FWW and gait belt were used for transfer Other Treatments Other Treatment Performed transfer training and WB through LE to return to bed M7 PT-IP Assessment and Plan Start: 09/16/19 11:12 Freq: NEEDED Status: Active Protocol: Document 09/17/19 14:01 [facility] (Rec: 09/17/19 14:05 [facility] [id number]) PT Summary Assessment and Plan Potential Rehabilitation Potential Good Summary Impairments Pain,ROM,Strength,Balance, Cognition,Bed Mobility, Transfers,Gait,Activity Tolerance Assessment Summary 79 y/o female admitted 09/14/19 following a GLF suffering a left intertrochanteric hip fracture. She is day 2 post op intermedullary nail of the left hip. pt had much better pain control today and blood pressure remained stable throughout treatment. Pt's hip exercises were reviewed with her and she was able to participate in all of her exercises taking breaks in between. Her knee flexion was improved to 60 degrees today PROM. Bed mobility was Max A x 2 as she was able to move her leg a little to assist. She was scooted to the left side of bed with max A x 2, transfer to sitting at edge of bed Max A x 2, transfers to stand was max A x 2 and pt transfered to bed side chair dony small steps with verbal cuing mod A x 2. Overall much better today for mobility and improved pain control. Goals Bed Mobility Goal Moderate Assistance Transfer Goal Moderate Assistance Gait Goal Moderate Assistance Gait Distance 20 feet Days to Meet Goals 5 Frequency of Treatment Frequency Of Treatment Twice a Day Treatment Plan Physical Therapy Treatment Plan Bed Mobility Training,Transfer Training,Gait Training, Therapeutic Exercise,Post Op Education,Hot or Cold Pack Recommendations To Nursing Amount of Assist Needed 2 Person Assist Discharge Recommendations PT Discharge Recommendations SNF Rehab Other Discharge Recommendations pt will be going to a SNF in [place] closer to where her boys live Transportation Needs at Discharge Wheelchair/Cabulance,Stretcher /Ambulance
--- NOTE | 2019-09-17 15:25 | CM.DPC ---
DCP Cont: Discussed patient at team rounds. Plan is for patient to go to [facility] on [address]. During conversation, has been recommended that patient go via stretcher, since she just had surgery, and length of transportation. Updated son, Tommy. He is aware that transportation can cost thousands of dollars'. Stated that this may be the safest mode of transportation. Son stated, I was hoping that I could take her in my van. Let him know that discharge planning can continue to bring this up with P.T. P: DCP to continue to follow. Plan is for patient to go to [facility] facility on [address]. She has already been accepted by [facility], in admissions. Patient may need to go via BLS. Continue to follow up with P.T. Belén Bill RN/In Flight Refueling Operator
[2019-09-17] MEDS: clonazePAM 0.5 MG TABLET 0.25 MG PO (20:57)
[2019-09-17] MEDS: SENNOSIDES 8.6 MG TABLET 17.2 MG PO (20:58)
[2019-09-17] MEDS: NORTRIPTYLINE HCL 25 MG CAPSULE PO (20:59)
[2019-09-18 04:10] VITALS: BP 136/63; PULSE 72; RESP 18; TEMP 36.6; O2SAT 92
[2019-09-18 04:55] LABS: Add Manual Diff / Slide Review NO; Basophils Absolute Auto 100 /uL (0-100); Basophils Percent Auto 0.6 % (0-2); Eosinophils Absolute Auto 700 /uL (0-450); Eosinophils Percent Auto 7.3 % (2-4); Hematocrit 25.9 % (36-46); Hemoglobin 9.3 g/dL (12.0-16.0); Lymphocytes Absolute Auto 1700 /uL (1100-4500); Lymphocytes Percent Auto 17.6 % (25-40); Mean Corpuscular HGB Conc 35.8 % (30-36); Mean Corpuscular Hemoglobin 32.8 PG (26-34); Mean Corpuscular Volume 91.6 fL (80-100); Monocytes Absolute Auto 800 /uL (0-900); Monocytes Percent Auto 8.8 % (3-14); Neutrophils Absolute Auto 6300 /uL (1500-7000); Neutrophils Percent Auto 65.7 % (50-75); Platelet Count 193 X10^3/uL (150-400); Red Blood Cell Count 2.83 X10^6/uL (4.0-5.2); Red Cell Distribution Width 12.6 % (11.6-14.8); White Blood Cell Count 9.5 X10^3/uL (4.5-11.0)
[2019-09-18 04:58] LABS: Alanine Aminotransferase 11 IU/L (<35); Albumin 2.4 g/dL (3.5-5.0); Albumin Globulin Ratio 0.9 (1.0-2.8); Alkaline Phosphatase 74 U/L (38-126); Aspartate Aminotransferase 44 IU/L (14-36); BUN Creatinine Ratio 37.5 (6-22); Bilirubin Total 0.4 mg/dL (0.2-1.3); Blood Urea Nitrogen 15 mg/dL (7-17); Carbon Dioxide 29 mmol/L (22-32); Chloride 100 mmol/L (98-107); Estimated Glomerular Filt Rate > 60.0 mL/min (>60); Globulin 2.6 g/dL (1.7-4.1); Glucose 95 mg/dL (80-110); HEMOLYSIS < 15 (0-50); Magnesium 1.7 mg/dL (1.6-2.3); Sodium 129 mmol/L (137-145)
[2019-09-18 05:12] LABS: Potassium 5.6 mmol/L (3.4-5.1)
[2019-09-18] MEDS: ACETAMINOPHEN 325 MG TABLET 975 MG PO (07:54)
[2019-09-18] MEDS: OXYCODONE IR 5 MG TABLET PO ×2 (07:55→11:53)
[2019-09-18] MEDS: CYCLOBENZAPRINE 5 MG TABLET PO (07:55)
[2019-09-18 08:00] VITALS: BP 144/65; PULSE 73; RESP 18; TEMP 37.3; O2SAT 91
[2019-09-18] MEDS: SODIUM CHLORIDE 0.9% FLUSH 10 ML IV (09:40)
[2019-09-18] MEDS: ENOXAPARIN 40 MG/0.4 ML SYRINGE SUBCUT (09:42)
[2019-09-18] MEDS: DOCUSATE 100 MG CAPSULE PO (09:43)
[2019-09-18] MEDS: CITALOPRAM 20 MG TABLET 40 MG PO (09:43)
[2019-09-18] MEDS: AMLODIPINE 2.5 MG TABLET PO (09:44)
[2019-09-18] MEDS: METOPROLOL IR 50 MG TABLET PO (09:45)
[2019-09-18] MEDS: PRAVASTATIN 20 MG TABLET PO (09:45)
[2019-09-18] MEDS: polyethylene glycoL 3350 17 GM POWD.PACK PO (09:45)
[2019-09-18] MEDS: CALCIUM CARB/VIT D3 500/200 TABLET 1 EACH PO (09:46)
[2019-09-18] MEDS: lisinopriL 20 MG TABLET PO (09:47)
[2019-09-18] MEDS: LEVOTHYROXINE 75 MCG TABLET PO (09:54)
[2019-09-18] MEDS: FERROUS GLUCONATE 324 MG TABLET PO (09:54)
--- NOTE | 2019-09-18 10:00 | PT.IPTN ---
Current Diagnoses Acute posthemorrhagic anemia (09/14/19) Hypomagnesemia (09/14/19) Hypo-osmolality and hyponatremia (09/14/19) Hypokalemia (09/14/19) Age-related osteoporosis with current pathological fracture, unspecified femur, initial encounter for fracture (09/14/19) Displaced intertrochanteric fracture of left femur, initial encounter for closed fracture (09/14/19) Surgery Performed Operation Date: 09/15/19 17:00 Actual Procedures p Intramedullary Nailing left intertrochanteric fracture(Left) - Zelda Lea MD Physical Therapy Treatment Note M2 PT-IP Current Condition Start: 09/16/19 11:12 Freq: NEEDED Status: Active Protocol: Document 09/16/19 11:12 AMH (Rec: 09/16/19 12:14 AMH [id number]) Physical Therapy Current Condition Current Condition Evaluation Date 09/16/19 Treatment Diagnosis left intertrochanteric femur fracture s/p intermedullary nail fixation Onset Date 09/14/19 Precautions Other Precautions WBAT left LE Weight Bearing Status Weight Bearing Status Weight Bear as Tolerated M3 PT-IP Subjective Start: 09/16/19 11:12 Freq: NEEDED Status: Active Protocol: Document 09/18/19 10:00 AB (Rec: 09/18/19 11:26 AB [id number]) Subjective Physical Therapy Visit Type Type Treatment Note Visit Start Time 10:00 Visit Stop Time 10:31 Total Visit Minutes 31 Number of PROVIDER ENROLLMENT SPECIALIST Visits 0 Physical Therapy Visit Comments Patient Comments pt agreeable to do PT Therapy Pain Assessment Pain When Pain Assessed At Rest Pain Present Pain Present Pain Reported Location left hip Scale Used pain scale not stated but increase with mobility Pain Management Techniques Distraction,Modification of Treatment M4 PT-IP Mobility and Gait Start: 09/16/19 11:12 Freq: NEEDED Status: Active Protocol: Document 09/18/19 10:00 AB (Rec: 09/18/19 11:26 AB [id number]) PT-Bed Mobility Assessment Supine to Sit Supine to Sit Maximum Assistance,1 Person Assistance,Head of Bed Elevated Scooting Scooting to Edge of Bed Dependent PT-Transfer Assessment Sit to and From Stand Sit to and from Stand Maximum Assistance,1 Person Assistance,2 Person Assistance ,Use of Upper Extremities Equipment Transfer Assistive Device Front Wheeled Walker Orthotic/Prosthetic Devices or Brace: No Transfers Transfer Destination Bedside Commode Transfer Technique Stand Pivot Transfer Ability Level of Assist Maximum Assistance,1 Person Assistance,2 Person Assistance ,Use of Upper Extremities Comments Mobility Comments pt completed sit to stand from EOB max A x 1-2 and max cues. attempted ambulation but pt unable to take steps forward despite max A x 2 provided. bedside commode positioned next to pt and pt completed stand pivot using FWW max A x 1-2 and max cues. pt completed sit to stand from bedside commode max A x 1-2 and max cues and completed stand pivot transfer using FWW max A and max cues. positioned pt on chair. Left pt with NAC. Gait Assessment Comments Gait Comments attempted but unable M5 PT-IP Objective Assessments Start: 09/16/19 11:12 Freq: NEEDED Status: Active Protocol: Document 09/17/19 14:01 AMH (Rec: 09/17/19 14:08 AMH [id number]) Orientation Orientation/Cognition Level of Alertness Alert Other Assessments Other Other Assessments pt doing better overall with mobility, mod A x 2 for transfers. Pt requires assistance with straightening left LE to return to sitting at bed side. She was dependent with bed mobility due to fatigue, she did bend her left knee to 20 degrees activily when moving in bed. She would benefit from continued PT for strengthening , transfer training, bed mobility, and gait training. M6 PT-IP Treatment Start: 09/16/19 11:12 Freq: NEEDED Status: Active Protocol: Document 09/18/19 10:00 AB (Rec: 09/18/19 11:26 AB [id number]) Physical Therapy Treatment Education Education Provided Safety M7 PT-IP Assessment and Plan Start: 09/16/19 11:12 Freq: NEEDED Status: Active Protocol: Document 09/18/19 10:00 AB (Rec: 09/18/19 11:26 AB [id number]) PT Summary Assessment and Plan Potential Rehabilitation Potential Good Summary Impairments Pain,ROM,Strength,Balance, Coordination,Sensation,Tone, Cognition,Bed Mobility, Transfers,Gait,Activity Tolerance Progress Towards Goals Slow Progress due to Pain,Slow Progress due to Activity Tolerance Assessment Summary pt continues to require max A x 1-2 and max cues and unable to ambulate at this time. pt will require SNF rehab to improve strength and mobility independence. Goals Bed Mobility Goal Moderate Assistance Transfer Goal Moderate Assistance,Front Wheeled Walker Gait Goal Moderate Assistance,Front Wheel Walker Gait Distance 20 feet Days to Meet Goals 5 Frequency of Treatment Frequency Of Treatment Twice a Day Treatment Plan Physical Therapy Treatment Plan Bed Mobility Training,Transfer Training,Gait Training, Therapeutic Exercise,Post Op Education,Hot or Cold Pack Recommendations To Nursing Amount of Assist Needed 2 Person Assist Discharge Recommendations PT Discharge Recommendations SNF Rehab Transportation Needs at Discharge Wheelchair/Cabulance,Stretcher /Ambulance
--- NOTE | 2019-09-18 10:18 | PC.NURSE ---
Addendum entered by Laura Harrison R.N. 09/18/19 14:14: ATTEMPTED TO CALL REPORT X 2 ( [phone]) TO [facility] DEPT AT [facility]- #1 no answer and #2 no answer and full mailbox unable to leave a message Addendum entered by Laura Harrison R.N. 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
--- NOTE | 2019-09-18 10:24 | CM.DPC ---
DCP cont: Faxed signed med list and PASRR to [facility] at fax # [phone]. Fax confirmation scanned in. Philly Walker, Care Correctional Therapy Director
--- NOTE | 2019-09-18 11:08 | P.DS_ITS ---
History of Present Illness History of Present Illness Date Patient Seen: 09/14/19 Chief complaint: L hip fracture Narrative: Written by Dr. Mayes: The patient is an 79-year-old female with a history of hypertension, hyperlipidemia, GERD, coronary artery disease, who reports she was standing at home looking through her tripod telescope when she stepped backwards to ovoid he r dog and fell over 1 of the legs of the tripod. The patient landed on her left hip. She had immediate pain. She denies any lightheadedness dizziness or chest pain prior to her fall. Patient was taken to [facility]. She had an x-ray which showed an acute moderate angulated mildly foreshortened comminuted displaced intertrochanteric left femur fracture. As [facility] had no orthopedic coverage this evening she was transferred to [facility] for admission and surgical treatment. Discharge Providers Provider Date of admission: 09/14/19 20:52 Discharge Date: 09/18/19 Primary care physician: Bronson Cheatham MD Consults: 09/14/19 22:55 Consult to Dietitian, Adult Routine Comment: Reason For Exam: assessed at high risk 09/14/19 23:16 Consult to Occupational Therapy Evaluate & Treat Comment: after surgery, SLUMS Physician Instructions: Evaluate and treat 09/15/19 11:39 Consult to Dietitian, Adult Routine Comment: Reason For Exam: chronic severe PCM 09/15/19 20:32 Consult to Discharge Planning Routine Comment: Consult to Physical Therapy Evaluate & Treat Comment: wbat Physician Instructions: Evaluate and Treat Consult to Respiratory Therapy Evaluate & Treat Comment: Physician Instructions: Evaluate and treat Discharge provider: Marybel Rutherford DO Summary Hospital Course Discharge Diagnosis: 1. Acute pathological left angulated comminuted displaced intertrochanteric femur fracture, present on admission. Active. 2. Acute blood loss anemia, not present on admission. Active. 3. Moderate dementia with short-term memory recall deficit and no behavioral disturbance, present on admission. Stable. 4. Hyponatremia, acuity unknown but likely chronic, present on admission. Stable. 5. Hypokalemia, acuity unknown, present on admission. Resolved. 6. Hypomagnesemia, acuity unknown, present on admission. Resolved. 7. Hypertension, chronic, present on admission. Stable. 8. CAD and hyperlipidemia, chronic, present on admission. Stable. 9. Hypothyroidism, chronic, present on admission. Stable. 10. Anxiety, chronic, present on admission. Stable. 11. Insomnia, chronic, present on admission. Stable. 12. History of recent aspergillosis pneumonia. 13. Chronic severe protein calorie malnutrition, present on admission. Presumed stable. Hospital Course: Sophia Mathis is an 79-year-old female with a past medical history significant for CAD, hypertension, hyperlipidemia, hypothyroidism, anxiety, chronic back pain with opiate dependence, insomnia and osteoporosis who presented to [facility] ED after ground level fall with left femur fracture and was subsequently transferred to [facility] for orthopedic surgical repair as Orthopedic surgery was unavailable at [facility]. 1. Acute pathological left angulated comminuted displaced intertrochanteric femur fracture, present on admission. Active. -Patient presented after ground level fall with left lower extremity pain and inability to ambulate. -Left femur x-ray from [facility] demonstrated moderate angulated, mildly foreshortened, comminuted and displaced intertrochanteric left femoral fracture. -COVID-19 negative and ruled out x 2. -Consulted orthopedic surgery, Dr. Lea, who performed intramedullary nailing of left intertrochanteric femur fracture. Continued postoperative management, DVT prophylaxis and pain control per Ortho. Plan for follow-up with orthopedic surgery Dr. Lea, in 2 weeks. Patient is weight-bearing as tolerated on left lower extremity for 6 weeks. -Discontinued Lovenox due to bleeding and placed patient on aspirin 81 mg twice daily x 6 weeks for DVT prophylaxis with famotidine 20 mg twice daily while on aspirin for GI prophylaxis. -Continued pain control with acetaminophen 975 mg 3 times daily for mild pain, cyclobenzaprine 5 mg every 8 hours as needed for muscle spasms and and oxycodone 2.5-5 mg every 3 hours as needed for moderate to severe pain. -Patient has known osteoporosis. Continue calcium and vitamin-D supplementation. Patient will need outpatient treatment for osteoporosis per PCP or Ortho. -Continued physical and occupational therapy evaluation and treatment. 2. Acute blood loss anemia, not present on admission. Active. -Secondary to acute blood loss from intramedullary nailing of left int ertrochanteric femur fracture and hemodilutional due to IV fluids. Possible chronic portion which is likely secondary to nutritional deficiencies and dementia. -Initial hemoglobin 12.1. Hemoglobin trended down from 9.9 to now 6.1 postoperatively. Patient received 2 units PRBC per ortho with appropriate compensation with hemoglobin now 9.3. No overt signs of bleeding. Transfusion goal hemoglobin < 7.0. Recommend repeat CBC in 3-5 days. -Discontinued Lovenox due to bleeding and placed patient on aspirin 81 mg twice daily x 6 weeks for DVT prophylaxis with famotidine 20 mg twice daily while on aspirin for GI prophylaxis. -Iron profile demonstrated iron deficiency anemia for which patient received Venofer 200 mg IV x1 and was started on ferrous gluconate 324 mg daily. Implemented bowel regimen to avoid iron and opiate induced constipation. B12 normal at 805 and folate level normal at 8.5. -Continued monitor H&H closely. 3. Moderate dementia with short-term memory recall deficit and no behavioral disturbance, present on admission. Stable. -Patient has known short-term memory recall deficit with intermittent confusion. The patient's son is now taken role of primary caregiver due to inability to care for herself. Patient's spouse recently past 2 weeks ago. -SLUMS performed by occupational therapy scored +16/30 which is indicative of dementia. 4. Hyponatremia, acuity unknown but likely chronic, present on admission. Stable. -Likely secondary to thiazide diuretic and dehydration due to dementia and decreased PO intake. Discontinued chlorthalidone indefinitely. -Initial sodium level 123. Discontinued IV fluids once patient was adequately hydrated. Sodium level trended up to 131 with IV fluids then trended back down to 127 and now up to 129 today. Continued to encourage PO intake of fluids and continue Ensure Enlive supplemental shake 3 times daily with meals. -Continued to monitor sodium level closely and replete as necessary. Recommend repeat sodium level in 3-5 days. 5. Hypokalemia, acuity unknown, present on admission. Resolved. -Likely secondary to chlorthalidone. -Initial potassium level 2.7. Received potassium chloride 160 mEq total throughout hospitalization. Potassium level now 5.6 and very labile, therefore, not treated for hyperkalemia as level will undoubtedly trend down over the next 24 hours. Continued home potassium chloride 10 mEq twice daily. -Continued to monitor potassium level closely and replete as necessary. Recommend repeat potassium level in 3-5 days and adjustment of potassium dose depending on level/trend. 6. Hypomagnesemia, acuity unknown, present on admission. Resolved. -Initial magnesium level 1.5. Received magnesium sulfate 2 g IV x1. Magnesium level now 1.7. -Continued to monitor magnesium level closely and replete as necessary. Started magnesium chloride 64 mg daily. Recommend repeat magnesium level in 3-5 days and adjustment of magnesium dose depending on level/tract. 7. Hypertension, chronic, present on admission. Stable. -Continued amlodipine 2.5 mg daily, lisinopril 20 mg daily and metoprolol tartrate 50 mg twice daily. Discontinued chlorthalidone indefinitely due to likely chronic electrolyte derangement. 8. CAD and hyperlipidemia, chronic, present on admission. Stable. -EKG demonstrated sinus tachycardia with occasional PVCs and anteroseptal SC age indeterminate. -Continued metoprolol tartrate 50 mg twice daily and pravastatin 20 mg daily. 9. Hypothyroidism, chronic, present on admission. Stable. -TSH 6.39 and free T4 1.47 possibly indicative of subclinical hypothyroidism. Recommend repeat thyroid function testing in 4-6 weeks per PCP. -Continued levothyroxine 75 mcg daily. 10. Anxiety, chronic, present on admission. Stable. -Continued home clonazepam 0.25 mg daily at bedtime. 11. Insomnia, chronic, present on admission. Stable. -Continued clonazepam 0.25 mg daily at bedtime and nortriptyline 25 mg daily at bedtime. 12. History of recent aspergillosis pneumonia. -Patient is followed by pulmonology and completed course of treatment for aspergillosis pneumonia. Of note, patient has had aspergillosis pneumonia x2. -Chest x-ray demonstrated mild interstitial pulmonary edema and questionable focal right upper lobe pneumonia. Patient does not have pneumonia by clinical exam or laboratory evaluation. 13. Chronic severe protein calorie malnutrition, present on admission. Presumed stable. -BMI 17.7. -Patient appears cachectic with full body muscle wasting. -Consulted dietitian and we appreciate her time and recommendations. Continue Ensure Enlive supplemental shakes 3 times daily with each meal. Exam Vital Signs (past 8 hours): - 09/18/19 04:10 09/18/19 08:00 Temperature 97.9 F 99.2 F Pulse Rate 72 73 Respiratory Rate 18 18 Blood Pressure 136/63 144/65 H Pulse Oximetry 92 91 Oxygen Delivery Method Room Air Oxygen Flow Rate 0 Narrative Exam Narrative: General: Elderly cachectic and frail-appearing female sitting in bed, in no acute distress, moderate dementia with short-term memory deficit but otherwise appropriately interactive. HEENT: Normocephalic, atraumatic. External ears without defect. Pupils equal, round, and reactive to light. Anicteric sclerae, moist conjunctivae, and no lid lag. Oropharynx free of erythema and cobble stoning with moist mucosa. Bitemporal and full body muscle wasting. Neck: Supple with full range of motion. No lymphadenopathy or thyromegaly. Cardiovascular: Regular rate and rhythm with soft systolic murmur grade 2/6 at LSB. No rubs or gallops appreciated. Pulmonary: Clear to auscultation bilaterally without crackles, wheezes, or rhonchi. Normal respiratory effort with no use of accessory muscles. Abdomen: Soft, scaphoid, non-tender, non-distended. No hepatosplenomegaly or masses appreciated. Extremities: No clubbing, cyanosis, or edema. Left lower extremity with dressing in place with small amount of dry serosanguineous fluid otherwise clean, dry and intact without surrounding erythema, edema or ecchymosis. Skin: Normal temperature, turgor, and texture; no rash, ulcers, or subcutaneous nodules appreciated. Neurological: Cranial nerves grossly intact. Psychiatric: Normal mood and affect. Appears alert and oriented to person and place. Moderate dementia with short-term memory deficit. Objective Labs Result Diagrams: 09/18/19 04:30 09/18/19 04:30 Labs: Laboratory Results - last 24 hr 09/14/19 09/17/19 09/17/19 21:25 04:50 04:50 WBC RBC Hgb Hct MCV MCH MCHC RDW Plt Count Neut % (Auto) Lymph % (Auto) Forest % (Auto) Eos % (Auto) Baso % (Auto) Neut # (Auto) Lymph # (Auto) Forest # (Auto) Eos # (Auto) Baso # (Auto) Sodium Potassium Chloride Carbon Dioxide BUN Creatinine Estimated GFR BUN/Creatinine Ratio Glucose Calcium Magnesium Iron 19 L TIBC 213 L % Saturation 9 L Transferrin 148 L Total Bilirubin AST ALT Alkaline Phosphatase Total Protein Albumin Globulin Albumin/Globulin Ratio Vitamin B12 805 Folate 8.5 Blood Type B Positive Antibody Screen Negative Crossmatch See Detail 09/18/19 09/18/19 04:30 04:30 WBC 9.5 RBC 2.83 L Hgb 9.3 L Hct 25.9 L MCV 91.6 MCH 32.8 MCHC 35.8 RDW 12.6 Plt Count 193 Neut % (Auto) 65.7 Lymph % (Auto) 17.6 L Forest % (Auto) 8.8 Eos % (Auto) 7.3 H Baso % (Auto) 0.6 Neut # (Auto) 6300 Lymph # (Auto) 1700 Forest # (Auto) 800 Eos # (Auto) 700 H Baso # (Auto) 100 Sodium 129 L Potassium 5.6 H D Chloride 100 Carbon Dioxide 29 BUN 15 Creatinine 0.40 L Estimated GFR > 60.0 BUN/Creatinine Ratio 37.5 H Glucose 95 Calcium 8.0 L Magnesium 1.7 Iron TIBC % Saturation Transferrin Total Bilirubin 0.4 AST 44 H ALT 11 Alkaline Phosphatase 74 Total Protein 5.0 L Albumin 2.4 L Globulin 2.6 Albumin/Globulin Ratio 0.9 L Vitamin B12 Folate Blood Type Antibody Screen Crossmatch Discharge Plan Discharge Plan Patient Disposition: SNF Under care of provider: director game Discharge orders & Medications Prescriptions: New acetaminophen 325 mg Tablet 975 mg PO TID Qty: 30 RF: 0 polyethylene glycol 3350 17 gram Powder In Packet 17 gm PO DAILY Qty: 30 RF: 0 docusate sodium [DOK] 100 mg Capsule 100 mg PO BID Qty: 60 RF: 0 oxycodone 5 mg Tablet 2.5 mg PO Q3HR PRN (Reason: Pain, Moderate (4-6)) Qty: 10 RF: 0 cyclobenzaprine 5 mg Tablet 5 mg PO Q8HR PRN (Reason: Spasms) Qty: 10 RF: 0 ferrous gluconate 324 mg (38 mg iron) Tablet 324 mg PO DAILY Qty: 30 RF: 0 aspirin [Aspir-Low] 81 mg tablet,delayed release (DR/EC) 81 mg PO BID Qty: 84 RF: 0 famotidine 20 mg tablet 20 mg PO BID Qty: 60 RF: 0 Slow-Mag 71.5 mg Tablet,Delayed Release (Dr/Ec) 64 mg PO DAILY Qty: 30 RF: 0 Continued metoprolol tartrate [Lopressor] 50 MG tablet 50 mg PO BID Qty: 0 RF: 0 multivitamin Tablet 1 tab PO DAILY RF: 0 potassium chloride 10 mEq Capsule, Extended Release 10 meq PO BID RF: 0 amlodipine 2.5 mg tablet 2.5 mg PO DAILY RF: 0 levothyroxine [Synthroid] 75 mcg tablet 75 mcg PO DAILY RF: 0 nortriptyline 25 mg capsule 25 mg PO BEDTIME RF: 0 calcium carbonate [Calcium 600] 600 mg calcium (1,500 mg) Tablet 200 mg PO BID RF: 0 citalopram 20 mg tablet 40 mg PO DAILY RF: 0 oxycodone 5 mg tablet 5 mg PO BID PRN (Reason: Back Pain) RF: 0 cholecalciferol (vitamin D3) 2,000 unit Tablet,Chewable 2,000 unit PO DAILY RF: 0 clonazepam 0.125 mg Tablet,Disintegrating 0.25 mg PO BEDTIME Qty: 10 RF: 0 lisinopril 20 mg Tablet 20 mg PO DAILY RF: 0 pravastatin 20 mg Tablet 20 mg PO DAILY RF: 0 Discontinued chlorthalidone 25 mg Tablet 12.5 mg PO DAILY RF: 0 Other Ambulatory Orders: Complete Blood Count AUTO DIFF (Stat) Timeframe: 5 Days Facility: [facility] - Location: Laboratory Ordered By: Marybel Rutherford Comprehensive Metabolic Panel (Stat) Timeframe: 5 Days Facility: [facility] - Location: Laboratory Ordered By: Marybel Rutherford Magnesium (Stat) Timeframe: 5 Days Facility: [facility] - Location: Laboratory Ordered By: Marybel Rutherford Follow up/Referrals: Zelda Lea MD [Physician] - 2 Weeks Bronson Cheatham MD [Primary Care Provider] - Diet/Activity/Treatments Diet: Low-fat, Low-sodium and Low-cholesterol Liquid consistency: Normal/Thin Diet comment: Ensure Enlive 3 times daily Activity: Weight-bearing as tolerated on left lower extremity [facility] Rehab type: Physical therapy and Occupational therapy Visit Report/Discharge Packet Instructions: How to Prevent Falls, DI for Prescription Opioid Use Stand Alone Forms: Surgery Discharge Discharge Data Primary Care Provider: Bronson Cheatham Quality VTE Deep Vein Thrombosis/Pulmonary Embolism Present on Admission: No
--- NOTE | 2019-09-18 11:58 | CM.DPC ---
DCP cont: Faxed discharge packet (signed med list, PASRR and discharge summary) to [facility] at fax # [phone]. Fax confirmation scanned in. Philly Walker, Care Advertising Vice President
[2019-09-18 12:00] VITALS: BP 143/62; PULSE 71; RESP 18; TEMP 37.1; O2SAT 93
--- NOTE | 2019-09-18 12:11 | CM.DPNOTE ---
DC Note: DC order in place for SNF; reviewed DCP w/ son Tommy; Tommy and his alarmed initially about sudden DC date but inevitably were more confident about the DCP after speaking w/staff at [facility] at the [facility]. All in agreement for plan; IMM verbally reviewed and agreement obtained. Reviewed need for BLS w/patient's family; son Tommy concerned about cost of BLS. This LOAN OFFICER ASSISTANT explained the only way to avoid out of pocket cost completely is to transport his mother by private vehicle, but this form of transportation is not recommended by Dr Rutherford or nursing staff this morning. Son agreeable to BLS Reviewed w/ Pierre at [facility]; Philly, [employer] faxed DC ppk and completed PASRR. BLS P/u scheduled for 1199, HUANG Sanchez updated and has given report to [facility]. P: DC to [facility] via BLS today SRI Baeza
== END 2019-09-18 12:10 | DRG 480 ==
LOC: ED 20:52 → ICU 21:05 → AC 09-16 14:04
PROVIDERS: Internal Medicine; Orthopaedic Surgery; Orthopaedic Surgery Foot and Ankle Surgery; Admitting Provider Internal Medicine; Emergency Provider Emergency Medicine; PCP Family Medicine; Referring Provider Emergency Medicine; Visit Provider Internal Medicine
PROC: 0QS706Z Reposition Left Upper Femur with Intramedullary Internal Fixation Device, Open Approach (ICD-10-PCS; CPT 27245; principal; 2019-09-15 17:00)
DX: M80.052A Age-related osteoporosis with current pathological fracture, left femur, initial encounter for fracture (principal); E43 Unspecified severe protein-calorie malnutrition; E87.1 Hypo-osmolality and hyponatremia; Z68.1 Body mass index [BMI] 19.9 or less, adult; D62 Acute posthemorrhagic anemia; E83.42 Hypomagnesemia; F03.90 Unspecified dementia, unspecified severity, without behavioral disturbance, psychotic disturbance, mood disturbance, and anxiety; E87.6 Hypokalemia; K21.9 Gastro-esophageal reflux disease without esophagitis; E78.5 Hyperlipidemia, unspecified; I25.10 Atherosclerotic heart disease of native coronary artery without angina pectoris; E03.9 Hypothyroidism, unspecified; I10 Essential (primary) hypertension; F41.9 Anxiety disorder, unspecified; G47.00 Insomnia, unspecified; W01.0XXA Fall on same level from slipping, tripping and stumbling without subsequent striking against object, initial encounter; Z03.818 Encounter for observation for suspected exposure to other biological agents ruled out
CPT/HCPCS: 36415; 36430; 71045; 73502; 76000; 80048; 80053; 82607; 82746; 83540; 83550; 83735; 84439; 84443; 85014; 85018; 85025; 85027; 86850; 86900; 86901; 87635; 87797; 93005; 94760; 96365; 96375; 97110; 97116; 97162; 97165; 97530; 97535; 99285; P9016; J0690; J1170; J1650; J1756; J2270; J2405; J2704; J3010; J3480